=== PATIENT | female | born 1975 | race Caucasian/White ===

== ENCOUNTER 2021-03-26 09:06 | Inpatient (IN) ==
[2021-03-26 11:51] LABS: Hematocrit 31.1 % (35.3-44.9); Hemoglobin 10.2 g/dL (11.5-15.4); Mean Corpuscular HGB Conc 32.8 g/dL (31.6-35.5); Mean Corpuscular Volume 94.5 fL (83.0-100.0); Mean Platelet Volume 9.5 fL (9.4-12.4); Platelet Count 202 K/mcL (140-400); Red Blood Count 3.29 M/mcL (3.82-4.97); Red Cell Distribution Width 13.8 % (11.5-14.5); White Blood Count 3.9 K/mcL (4.3-11.1)
[2021-03-26 12:01] LABS: INR 1.3
[2021-03-26 12:04] LABS: Activated Partial Thrombo Time 30.4 Seconds (26.0-36.0)
[2021-03-26 12:20] LABS: Alanine Aminotransferase 24 Units/L (7-52); Albumin 3.3 g/dL (3.5-5.7); Albumin/Globulin Ratio 1.1 (1.1-2.2); Alkaline Phosphatase 51 Units/L (34-104); Aspartate Amino Transferase 36 Units/L (13-39); BUN/Creatinine Ratio 13 (6-26); Bilirubin,Direct 0.1 mg/dL (0.0-0.2); Bilirubin,Indirect 0.1 mg/dL (0.0-1.0); Bilirubin,Total 0.2 mg/dL (0.3-1.0); Blood Urea Nitrogen 6 mg/dL (6-20); C-Reactive Protein 68 mg/L (Less than 10); Calcium 8.2 mg/dL (8.6-10.3); Carbon Dioxide 25 mEq/L (23-29); Chloride 102 mEq/L (98-107); Glucose 216 mg/dL (70-105); Lactate Dehydrogenase 335 Units/L (140-271); Magnesium 1.7 mg/dL (1.6-2.6); Osmolality,Calculated 284 (280-300); Phosphorous 2.9 mg/dL (2.7-4.5); Potassium 3.8 mEq/L (3.5-5.1); Sodium 135 mEq/L (136-145); Total Protein 6.3 g/dL (6.4-8.9); Troponin I < 0.03 ng/mL (< 0.04); eGFR For African Americans > 60 (> 60); eGFR For Non-African Americans > 60 (> 60)
[2021-03-26 12:24] LABS: Lymphocytes # 0.9 K/mcL (0.6-4.6)
[2021-03-26 12:25] LABS: Platelet Estimate Normal (Normal)
[2021-03-26 12:27] LABS: Reactive Lymphocytes Present (Not Present)
[2021-03-26 12:29] LABS: Ferritin 476 ng/mL (10-120)
[2021-03-26 12:32] LABS: Monocytes # 0.2 K/mcL (0.0-1.3); Neutrophils # 2.7 K/mcL (1.6-8.9)
[2021-03-26] MEDS ORDERED: *HR* Dextrose 50 % in Water (Syg) 50 ML SYRINGE IVP PRN (13:30)
[2021-03-26] MEDS ORDERED: D5% in Water 1,000 ML IVC PRN (13:30)
[2021-03-26] MEDS ORDERED: Dextrose Gel 15 GM/37.5 ML TUBE PO PRN ×2 (13:30)
[2021-03-26] MEDS ORDERED: Ondansetron 4 MG/2 ML VIAL IVP PRN (13:43)
[2021-03-26] MEDS ORDERED: Naloxone 0.4 MG/ML INJ IVP PRN (13:43)
[2021-03-26] MEDS ORDERED: Remdesivir 200 MG in 0.9 % Sodium Chloride 100 ML IVPB ONE (15:00)
[2021-03-26] MEDS: Ipratropium 1 PUFF INHALER IH SCH ×3 (16:17→23:16)
[2021-03-26] MEDS: Insulin LISPRO 300 UNITS/3 ML VIAL SUBQ SCH ×2 (16:42→22:37)
[2021-03-26] MEDS: *HR* Enoxaparin 40 MG/0.4 ML SYRINGE SQ SCH (22:37)
[2021-03-27] MEDS: Ipratropium 1 PUFF INHALER IH SCH ×6 (04:03→23:25)
[2021-03-27 05:42] LABS: Alanine Aminotransferase 27 Units/L (7-52); Albumin 3.3 g/dL (3.5-5.7); Albumin/Globulin Ratio 1.1 (1.1-2.2); Alkaline Phosphatase 50 Units/L (34-104); Aspartate Amino Transferase 38 Units/L (13-39); BUN/Creatinine Ratio 14 (6-26); Bilirubin,Total 0.2 mg/dL (0.3-1.0); Blood Urea Nitrogen 7 mg/dL (6-20); Calcium 8.1 mg/dL (8.6-10.3); Carbon Dioxide 25 mEq/L (23-29); Chloride 102 mEq/L (98-107); Glucose 240 mg/dL (70-105); Osmolality,Calculated 286 (280-300); Potassium 3.7 mEq/L (3.5-5.1); Sodium 135 mEq/L (136-145); Total Protein 6.3 g/dL (6.4-8.9); eGFR For African Americans > 60 (> 60); eGFR For Non-African Americans > 60 (> 60)
[2021-03-27] MEDS: Acetaminophen 325 MG TABLET PO PRN (08:17)
[2021-03-27] MEDS: Insulin LISPRO 300 UNITS/3 ML VIAL SUBQ SCH ×4 (08:19→21:35)
[2021-03-27] MEDS: *HR* Enoxaparin 40 MG/0.4 ML SYRINGE SQ SCH ×2 (08:38→21:35)
[2021-03-27 10:04] LABS: Hematocrit 31.2 % (35.3-44.9); Hemoglobin 10.1 g/dL (11.5-15.4); Immature Granulocytes % 0.6 % (0-4); Lymphocytes # 0.9 K/mcL (0.6-4.6); Lymphocytes % 16.7 %; Mean Corpuscular HGB Conc 32.4 g/dL (31.6-35.5); Mean Corpuscular Hemoglobin 31.1 pg (28.0-33.3); Monocytes # 0.4 K/mcL (0.0-1.3); Monocytes % 7.6 %; Neutrophils # 3.9 K/mcL (1.6-8.9); Platelet Count 233 K/mcL (140-400); Red Blood Count 3.25 M/mcL (3.82-4.97); Red Cell Distribution Width 13.5 % (11.5-14.5); Segmented Neutrophils % 75.1 %; White Blood Count 5.1 K/mcL (4.3-11.1)
[2021-03-27 11:38] LABS: C-Reactive Protein 60 mg/L (Less than 10)
[2021-03-27 13:46] LABS: Adenovirus F 40/41 PCR Not detected (Not detect); Astrovirus PCR Not detected (Not detect); Campylobacter by PCR Not detected (Not detect); Cryptosporidium by PCR Not detected (Not detect); Cyclospora cayetanensis PCR Not detected (Not detect); E. coli O157 by PCR Not detected (Not detect); Entamoeba histolytica PCR Not detected (Not detect); Enteroaggregative E.coli(EAEC) Not detected (Not detect); Enteropathogenic E.coli(EPEC) DETECTED (Not detect); Enterotoxigenic E.coli (ETEC) Not detected (Not detect); Giardia lamblia PCR Not detected (Not detect); Norovirus GI/GII PCR Not detected (Not detect); Plesiomonas shigelloides PCR Not detected (Not detect); Rotavirus A PCR Not detected (Not detect); Salmonella PCR Not detected (Not detect); Sapovirus PCR Not detected (Not detect); Shig/EnteroinvasiveE coli EIEC Not detected (Not detect); Shigalike tox-prod E coli STEC Not detected (Not detect); Vibrio PCR Not detected (Not detect); Vibrio cholerae PCR Not detected (Not detect); Yersinia enterocolitica PCR Not detected (Not detect)
[2021-03-27 13:50] LABS: C.difficile Toxin A/B Gene PCR DETECTED (Not detect)
[2021-03-27] MEDS: Remdesivir 100 MG in 0.9 % Sodium Chloride 100 ML IVPB SCH (15:47)
[2021-03-27] MEDS: Vancomycin Oral Soln 125 MG/2.5 ML UDC PO SCH ×2 (18:06→21:35)
[2021-03-27] MEDS: Insulin DETEMIR 100 UNIT/ML X5UNITS SUBQ SCH (21:35)
[2021-03-28] MEDS ORDERED: *HR* LORazepam 2 MG/ML VIAL IVP ONE (03:01)
[2021-03-28] MEDS: Ipratropium 1 PUFF INHALER IH SCH ×4 (03:05→20:42)
[2021-03-28] MEDS: *HR* Enoxaparin 40 MG/0.4 ML SYRINGE SQ SCH ×2 (08:14→20:20)
[2021-03-28] MEDS: Furosemide 40 MG/4 ML VIAL IVP SCH (08:15)
[2021-03-28] MEDS: Cholecalciferol (D-3) 1,000 UNIT (25MCG) TABLET PO SCH (08:15)
[2021-03-28] MEDS: Loratadine 10 MG TABLET PO SCH (08:15)
[2021-03-28] MEDS: Vancomycin Oral Soln 125 MG/2.5 ML UDC PO SCH ×4 (08:16→21:50)
[2021-03-28] MEDS: Insulin LISPRO 300 UNITS/3 ML VIAL SUBQ SCH ×4 (08:27→20:21)
[2021-03-28] MEDS: Insulin DETEMIR 100 UNIT/ML X5UNITS SUBQ SCH ×2 (08:28→20:21)
[2021-03-28] MEDS ORDERED: hydroCHLOROthiazide 25 MG TABLET PO SCH (09:00)
[2021-03-28] MEDS: Morphine Sulfate 2 MG/ML SYRINGE IVP PRN ×3 (11:36→20:20)
[2021-03-28 12:15] LABS: Fibrinogen 501 mg/dL (169-393)
[2021-03-28 12:23] LABS: D-Dimer 778 ng/mLFEU (0-500); Lactate Dehydrogenase 583 Units/L (140-271)
[2021-03-28 12:41] LABS: Ferritin 589 ng/mL (10-120)
[2021-03-28] MEDS: Remdesivir 100 MG in 0.9 % Sodium Chloride 100 ML IVPB SCH (14:56)
[2021-03-28] MEDS ORDERED: Furosemide 40 MG/4 ML VIAL IVP ONE (15:23)
[2021-03-29 03:06] LABS: Basophils % 0.1 %; Hematocrit 31.4 % (35.3-44.9); Hemoglobin 10.3 g/dL (11.5-15.4); Immature Granulocytes % 0.9 % (0-4); Lymphocytes # 0.8 K/mcL (0.6-4.6); Lymphocytes % 7.5 %; Mean Corpuscular HGB Conc 32.8 g/dL (31.6-35.5); Mean Corpuscular Hemoglobin 30.8 pg (28.0-33.3); Mean Platelet Volume 9.3 fL (9.4-12.4); Monocytes # 0.7 K/mcL (0.0-1.3); Monocytes % 7.2 %; Neutrophils # 8.7 K/mcL (1.6-8.9); Platelet Count 310 K/mcL (140-400); Red Blood Count 3.34 M/mcL (3.82-4.97); Red Cell Distribution Width 13.5 % (11.5-14.5); Segmented Neutrophils % 84.3 %
[2021-03-29 03:08] LABS: White Blood Count 10.3 K/mcL (4.3-11.1)
[2021-03-29 03:37] LABS: BUN/Creatinine Ratio 26 (6-26); Blood Urea Nitrogen 14 mg/dL (6-20); Calcium 8.4 mg/dL (8.6-10.3); Carbon Dioxide 29 mEq/L (23-29); Chloride 102 mEq/L (98-107); Glucose 300 mg/dL (70-105); Osmolality,Calculated 298 (280-300); Phosphorous 2.6 mg/dL (2.7-4.5); Potassium 3.6 mEq/L (3.5-5.1); Sodium 138 mEq/L (136-145); eGFR For African Americans > 60 (> 60); eGFR For Non-African Americans > 60 (> 60)
[2021-03-29] MEDS: Ipratropium 1 PUFF INHALER IH SCH ×4 (03:45→20:08)
[2021-03-29] MEDS: *HR* Enoxaparin 40 MG/0.4 ML SYRINGE SQ SCH ×2 (08:23→20:05)
[2021-03-29] MEDS: amLODIPine 5 MG TABLET PO SCH (08:24)
[2021-03-29] MEDS: Insulin DETEMIR 100 UNIT/ML X5UNITS SUBQ SCH ×2 (08:24→20:05)
[2021-03-29] MEDS: Loratadine 10 MG TABLET PO SCH (08:24)
[2021-03-29] MEDS: Cholecalciferol (D-3) 1,000 UNIT (25MCG) TABLET PO SCH (08:24)
[2021-03-29] MEDS: Vancomycin Oral Soln 125 MG/2.5 ML UDC PO SCH ×4 (08:25→20:05)
[2021-03-29] MEDS: Insulin LISPRO 300 UNITS/3 ML VIAL SUBQ SCH ×4 (08:25→20:06)
[2021-03-29] MEDS: Furosemide 40 MG/4 ML VIAL IVP SCH (08:26)
[2021-03-29] MEDS: Acetaminophen 325 MG TABLET PO PRN (08:42)
[2021-03-29] MEDS: Morphine Sulfate 2 MG/ML SYRINGE IVP PRN (08:50)
[2021-03-29] MEDS ORDERED: Furosemide 40 MG/4 ML VIAL IVP ONE (15:00)
[2021-03-29] MEDS: Remdesivir 100 MG in 0.9 % Sodium Chloride 100 ML IVPB SCH (16:03)
[2021-03-29] MEDS ORDERED: Saline Nasal Spray 44 ML BOTTLE NS PRN (19:22)
[2021-03-30] MEDS: Ipratropium 1 PUFF INHALER IH SCH ×4 (03:43→22:57)
[2021-03-30] MEDS: Insulin LISPRO 300 UNITS/3 ML VIAL SUBQ SCH ×3 (08:41→16:41)
[2021-03-30] MEDS: *HR* Enoxaparin 40 MG/0.4 ML SYRINGE SQ SCH ×2 (08:42→20:49)
[2021-03-30] MEDS: Cholecalciferol (D-3) 1,000 UNIT (25MCG) TABLET PO SCH (08:42)
[2021-03-30] MEDS: Loratadine 10 MG TABLET PO SCH (08:42)
[2021-03-30] MEDS: amLODIPine 5 MG TABLET PO SCH (08:42)
[2021-03-30] MEDS: Furosemide 40 MG/4 ML VIAL IVP SCH (08:43)
[2021-03-30] MEDS: Vancomycin Oral Soln 125 MG/2.5 ML UDC PO SCH ×4 (08:43→20:49)
[2021-03-30] MEDS: Insulin DETEMIR 100 UNIT/ML X5UNITS SUBQ SCH ×2 (08:44→20:50)
[2021-03-30 08:48] LABS: Basophils % 0.1 %; Hemoglobin 10.8 g/dL (11.5-15.4); Immature Granulocytes % 1.3 % (0-4); Lymphocytes # 1.3 K/mcL (0.6-4.6); Lymphocytes % 8.6 %; Mean Corpuscular HGB Conc 32.7 g/dL (31.6-35.5); Mean Corpuscular Volume 94.8 fL (83.0-100.0); Mean Platelet Volume 9.5 fL (9.4-12.4); Monocytes # 0.9 K/mcL (0.0-1.3); Monocytes % 5.8 %; Neutrophils # 12.5 K/mcL (1.6-8.9); Platelet Count 401 K/mcL (140-400); Red Blood Count 3.48 M/mcL (3.82-4.97); Red Cell Distribution Width 13.3 % (11.5-14.5); Segmented Neutrophils % 84.2 %; White Blood Count 14.8 K/mcL (4.3-11.1)
[2021-03-30] MEDS: Morphine Sulfate 2 MG/ML SYRINGE IVP PRN (08:50)
[2021-03-30 09:03] LABS: BUN/Creatinine Ratio 33 (6-26); Blood Urea Nitrogen 19 mg/dL (6-20); Calcium 8.8 mg/dL (8.6-10.3); Carbon Dioxide 32 mEq/L (23-29); Chloride 99 mEq/L (98-107); Glucose 239 mg/dL (70-105); Osmolality,Calculated 298 (280-300); Potassium 3.1 mEq/L (3.5-5.1); Sodium 139 mEq/L (136-145); eGFR For African Americans > 60 (> 60); eGFR For Non-African Americans > 60 (> 60)
[2021-03-30] MEDS: Remdesivir 100 MG in 0.9 % Sodium Chloride 100 ML IVPB SCH (16:43)
[2021-03-30 17:15] LABS: Albumin 3.5 g/dL (3.5-5.7); Bilirubin,Indirect 0.4 mg/dL (0.0-1.0); Bilirubin,Total 0.4 mg/dL (0.3-1.0); Globulin 3.5 g/dL (2.4-3.5)
[2021-03-31 01:43] LABS: Basophils % 0.2 %; Hematocrit 33.9 % (35.3-44.9); Hemoglobin 11.2 g/dL (11.5-15.4); Immature Granulocytes % 1.7 % (0-4); Lymphocytes % 7.4 %; Mean Corpuscular Hemoglobin 31.1 pg (28.0-33.3); Mean Corpuscular Volume 94.2 fL (83.0-100.0); Mean Platelet Volume 9.6 fL (9.4-12.4); Monocytes # 0.9 K/mcL (0.0-1.3); Monocytes % 6.2 %; Neutrophils # 11.8 K/mcL (1.6-8.9); Platelet Count 408 K/mcL (140-400); Red Cell Distribution Width 13.2 % (11.5-14.5); Segmented Neutrophils % 84.5 %
[2021-03-31 02:07] LABS: BUN/Creatinine Ratio 30 (6-26); Blood Urea Nitrogen 18 mg/dL (6-20); Calcium 8.9 mg/dL (8.6-10.3); Carbon Dioxide 31 mEq/L (23-29); Chloride 100 mEq/L (98-107); Glucose 233 mg/dL (70-105); Magnesium 2.1 mg/dL (1.6-2.6); Osmolality,Calculated 297 (280-300); Sodium 139 mEq/L (136-145); eGFR For African Americans > 60 (> 60); eGFR For Non-African Americans > 60 (> 60)
[2021-03-31] MEDS: Ipratropium 1 PUFF INHALER IH SCH ×4 (03:39→20:40)
[2021-03-31] MEDS: Morphine Sulfate 2 MG/ML SYRINGE IVP PRN (05:35)
[2021-03-31] MEDS: Insulin LISPRO 300 UNITS/3 ML VIAL SUBQ SCH ×3 (08:29→16:53)
[2021-03-31] MEDS: amLODIPine 5 MG TABLET PO SCH (08:30)
[2021-03-31] MEDS: Vancomycin Oral Soln 125 MG/2.5 ML UDC PO SCH ×4 (08:30→20:27)
[2021-03-31] MEDS: Cholecalciferol (D-3) 1,000 UNIT (25MCG) TABLET PO SCH (08:30)
[2021-03-31] MEDS: Loratadine 10 MG TABLET PO SCH (08:30)
[2021-03-31] MEDS: *HR* Enoxaparin 40 MG/0.4 ML SYRINGE SQ SCH ×2 (08:31→20:27)
[2021-03-31] MEDS: Furosemide 40 MG/4 ML VIAL IVP SCH (08:31)
[2021-03-31] MEDS: Insulin DETEMIR 100 UNIT/ML X5UNITS SUBQ SCH ×2 (08:32→20:27)
[2021-03-31] MEDS: GuaiFENesin Liq 200 MG/10 ML UDC PO PRN (21:41)
[2021-04-01] MEDS ORDERED: Benzonatate 100 MG CAPSULE PO PRN (01:36)
[2021-04-01] MEDS: Morphine Sulfate 2 MG/ML SYRINGE IVP PRN (01:46)
[2021-04-01] MEDS: Ipratropium 1 PUFF INHALER IH SCH ×4 (03:51→21:37)
[2021-04-01 05:09] LABS: Basophils % 0.3 %; Eosinophils # 0.1 K/mcL (0.0-0.6); Eosinophils % 0.5 %; Hematocrit 32.9 % (35.3-44.9); Hemoglobin 10.7 g/dL (11.5-15.4); Immature Granulocytes % 2.1 % (0-4); Lymphocytes # 1.3 K/mcL (0.6-4.6); Lymphocytes % 9.2 %; Mean Corpuscular HGB Conc 32.5 g/dL (31.6-35.5); Mean Corpuscular Hemoglobin 30.4 pg (28.0-33.3); Mean Corpuscular Volume 93.5 fL (83.0-100.0); Mean Platelet Volume 9.5 fL (9.4-12.4); Monocytes # 0.7 K/mcL (0.0-1.3); Monocytes % 4.7 %; Neutrophils # 12.1 K/mcL (1.6-8.9); Platelet Count 392 K/mcL (140-400); Red Blood Count 3.52 M/mcL (3.82-4.97); Red Cell Distribution Width 13.1 % (11.5-14.5); Segmented Neutrophils % 83.2 %; White Blood Count 14.6 K/mcL (4.3-11.1)
[2021-04-01 05:23] LABS: BUN/Creatinine Ratio 35 (6-26); Blood Urea Nitrogen 19 mg/dL (6-20); Calcium 8.8 mg/dL (8.6-10.3); Carbon Dioxide 29 mEq/L (23-29); Chloride 99 mEq/L (98-107); Glucose 184 mg/dL (70-105); Magnesium 2.1 mg/dL (1.6-2.6); Osmolality,Calculated 291 (280-300); Potassium 3.5 mEq/L (3.5-5.1); Sodium 137 mEq/L (136-145); eGFR For African Americans > 60 (> 60); eGFR For Non-African Americans > 60 (> 60)
[2021-04-01] MEDS: GuaiFENesin Liq 200 MG/10 ML UDC PO PRN (05:31)
[2021-04-01] MEDS: Insulin LISPRO 300 UNITS/3 ML VIAL SUBQ SCH ×3 (08:14→16:24)
[2021-04-01] MEDS: Furosemide 40 MG/4 ML VIAL IVP SCH (08:17)
[2021-04-01] MEDS: amLODIPine 5 MG TABLET PO SCH (08:19)
[2021-04-01] MEDS: Loratadine 10 MG TABLET PO SCH (08:19)
[2021-04-01] MEDS: Cholecalciferol (D-3) 1,000 UNIT (25MCG) TABLET PO SCH (08:19)
[2021-04-01] MEDS: *HR* Enoxaparin 40 MG/0.4 ML SYRINGE SQ SCH ×2 (08:21→21:00)
[2021-04-01] MEDS: Vancomycin Oral Soln 125 MG/2.5 ML UDC PO SCH ×2 (08:36→12:16)
[2021-04-01] MEDS: Insulin DETEMIR 100 UNIT/ML X5UNITS SUBQ SCH ×2 (08:37→21:01)
[2021-04-01 09:04] LABS: C-Reactive Protein 114 mg/L (Less than 10)
[2021-04-01] MEDS: Multivit/Ca/Min/Fe/FA 1 TAB TABLET PO SCH (12:17)
[2021-04-01] MEDS: Saliva Stimulant 44.3ml BOTTLE PO SCH ×6 (12:17→23:04)
[2021-04-01] MEDS: Artificial Tears SOLN 15 ML BOTTLE BOTH EYES SCH ×4 (12:17→21:01)
[2021-04-01] MEDS: Saline Nasal Spray 44 ML BOTTLE NS SCH ×4 (12:18→21:01)
[2021-04-01] MEDS: Chlorhexidine Rinse 15 ML MOUTHWASH MM SCH ×2 (12:19→21:00)
[2021-04-01 15:49] LABS: ABG Base Excess 3 mEq/L (-2 to 3); ABG HCO3 27 mEq/L (21-27); ABG Oxygen Saturation 94 % (95-98); ABG PCO2 38 mmHg (35-45); ABG PH 7.45 pH Units (7.32-7.45); ABG PO2 66 mmHg (85-104); ABG TCO2 28 mEq/L (20-26)
[2021-04-01] MEDS: Lactobacillus 1 EACH CAP.SPRINK PO SCH (21:00)
[2021-04-02] MEDS: Saliva Stimulant 44.3ml BOTTLE PO SCH ×12 (01:31→23:59)
[2021-04-02] MEDS: Saline Nasal Spray 44 ML BOTTLE NS SCH ×6 (01:31→23:59)
[2021-04-02] MEDS: Ipratropium 1 PUFF INHALER IH SCH ×5 (03:11→20:15)
[2021-04-02 04:05] LABS: Basophils % 0.2 %; Eosinophils # 0.1 K/mcL (0.0-0.6); Eosinophils % 0.6 %; Hematocrit 33.1 % (35.3-44.9); Lymphocytes % 5.9 %; Mean Corpuscular HGB Conc 33.2 g/dL (31.6-35.5); Mean Corpuscular Volume 93.2 fL (83.0-100.0); Mean Platelet Volume 9.7 fL (9.4-12.4); Monocytes # 0.7 K/mcL (0.0-1.3); Monocytes % 3.7 %; Neutrophils # 15.5 K/mcL (1.6-8.9); Platelet Count 373 K/mcL (140-400); Red Blood Count 3.55 M/mcL (3.82-4.97); Red Cell Distribution Width 12.9 % (11.5-14.5); Segmented Neutrophils % 87.6 %; White Blood Count 17.7 K/mcL (4.3-11.1)
[2021-04-02 04:30] LABS: Alanine Aminotransferase 21 Units/L (7-52); Albumin 3.2 g/dL (3.5-5.7); Albumin/Globulin Ratio 0.9 (1.1-2.2); Alkaline Phosphatase 77 Units/L (34-104); Aspartate Amino Transferase 20 Units/L (13-39); BUN/Creatinine Ratio 33 (6-26); Bilirubin,Total 0.5 mg/dL (0.3-1.0); Blood Urea Nitrogen 17 mg/dL (6-20); C-Reactive Protein 171 mg/L (Less than 10); Calcium 8.9 mg/dL (8.6-10.3); Carbon Dioxide 31 mEq/L (23-29); Chloride 96 mEq/L (98-107); Globulin 3.7 g/dL (2.4-3.5); Glucose 281 mg/dL (70-105); Lactate Dehydrogenase 556 Units/L (140-271); Magnesium 2.1 mg/dL (1.6-2.6); Osmolality,Calculated 294 (280-300); Phosphorous 3.3 mg/dL (2.7-4.5); Potassium 3.3 mEq/L (3.5-5.1); Sodium 136 mEq/L (136-145); Total Protein 6.9 g/dL (6.4-8.9); eGFR For African Americans > 60 (> 60); eGFR For Non-African Americans > 60 (> 60)
[2021-04-02 04:41] LABS: Ferritin 436 ng/mL (10-120)
[2021-04-02] MEDS: Chlorhexidine Rinse 15 ML MOUTHWASH MM SCH ×2 (08:04→21:00)
[2021-04-02] MEDS: amLODIPine 5 MG TABLET PO SCH (08:05)
[2021-04-02] MEDS: Lactobacillus 1 EACH CAP.SPRINK PO SCH ×2 (08:05→21:00)
[2021-04-02] MEDS: Cholecalciferol (D-3) 1,000 UNIT (25MCG) TABLET PO SCH (08:06)
[2021-04-02] MEDS: Loratadine 10 MG TABLET PO SCH (08:06)
[2021-04-02] MEDS: Furosemide 40 MG/4 ML VIAL IVP SCH (08:06)
[2021-04-02] MEDS: Multivit/Ca/Min/Fe/FA 1 TAB TABLET PO SCH (08:06)
[2021-04-02] MEDS: Insulin LISPRO 300 UNITS/3 ML VIAL SUBQ SCH ×3 (08:16→16:51)
[2021-04-02] MEDS: *HR* Enoxaparin 40 MG/0.4 ML SYRINGE SQ SCH (08:24)
[2021-04-02] MEDS: Artificial Tears SOLN 15 ML BOTTLE BOTH EYES SCH ×4 (08:28→21:00)
[2021-04-02 08:39] LABS: Estimated Average Glucose 206 mg/dl; Hemoglobin A1C 8.8 %
[2021-04-02] MEDS: Insulin DETEMIR 100 UNIT/ML X5UNITS SUBQ SCH ×2 (09:19→21:25)
[2021-04-02] MEDS ORDERED: Isovue-370 500 ML BOTTLE IVP ONE (12:25)
[2021-04-02] MEDS ORDERED: *HR* Heparin 5,000 UNIT/ML VIAL IVP PRN (14:18)
[2021-04-02] MEDS ORDERED: *HR* Heparin 5,000 UNIT/ML VIAL IVP ONE (14:18)
[2021-04-02] MEDS: Heparin 25,000UNIT/250ML 1/2NS 25,000 UNIT/250 ML IV.SOLN IVC SCH (16:46)
[2021-04-02 17:05] LABS: Hematocrit 34.7 % (35.3-44.9); Hemoglobin 11.4 g/dL (11.5-15.4); Mean Corpuscular HGB Conc 32.9 g/dL (31.6-35.5); Mean Corpuscular Hemoglobin 30.8 pg (28.0-33.3); Mean Corpuscular Volume 93.8 fL (83.0-100.0); Mean Platelet Volume 9.6 fL (9.4-12.4); Platelet Count 313 K/mcL (140-400); Red Cell Distribution Width 13.2 % (11.5-14.5); White Blood Count 24.2 K/mcL (4.3-11.1)
[2021-04-02 17:16] LABS: Heparin anti-factor XA UFH 0.04 IU/mL (0.30-0.70)
[2021-04-02 17:17] LABS: INR 1.4; Prothrombin Time 15.7 Seconds (9.4-12.1)
[2021-04-03] MEDS: Morphine Sulfate 2 MG/ML SYRINGE IVP PRN (00:21)
[2021-04-03] MEDS: Saliva Stimulant 44.3ml BOTTLE PO SCH ×9 (02:18→20:00)
[2021-04-03] MEDS: Ipratropium 1 PUFF INHALER IH SCH ×5 (03:39→23:34)
[2021-04-03] MEDS: Saline Nasal Spray 44 ML BOTTLE NS SCH ×5 (04:45→19:59)
[2021-04-03] MEDS: Heparin 25,000UNIT/250ML 1/2NS 25,000 UNIT/250 ML IV.SOLN IVC SCH ×2 (05:48→18:20)
[2021-04-03 06:51] LABS: Basophils # 0.1 K/mcL (0.0-0.2); Basophils % 0.3 %; Eosinophils # 0.7 K/mcL (0.0-0.6); Eosinophils % 3.1 %; Hemoglobin 10.5 g/dL (11.5-15.4); Immature Granulocytes % 3.5 % (0-4); Lymphocytes # 1.4 K/mcL (0.6-4.6); Mean Corpuscular HGB Conc 32.8 g/dL (31.6-35.5); Mean Corpuscular Hemoglobin 30.8 pg (28.0-33.3); Mean Corpuscular Volume 93.8 fL (83.0-100.0); Mean Platelet Volume 9.7 fL (9.4-12.4); Monocytes # 0.5 K/mcL (0.0-1.3); Monocytes % 2.4 %; Neutrophils # 19.3 K/mcL (1.6-8.9); Platelet Count 300 K/mcL (140-400); Red Blood Count 3.41 M/mcL (3.82-4.97); Red Cell Distribution Width 13.2 % (11.5-14.5); Segmented Neutrophils % 84.7 %; White Blood Count 22.7 K/mcL (4.3-11.1)
[2021-04-03 07:04] LABS: Alanine Aminotransferase 17 Units/L (7-52); Albumin/Globulin Ratio 0.8 (1.1-2.2); Alkaline Phosphatase 96 Units/L (34-104); Aspartate Amino Transferase 27 Units/L (13-39); BUN/Creatinine Ratio 25 (6-26); Bilirubin,Total 0.6 mg/dL (0.3-1.0); Blood Urea Nitrogen 15 mg/dL (6-20); Calcium 8.7 mg/dL (8.6-10.3); Carbon Dioxide 29 mEq/L (23-29); Chloride 97 mEq/L (98-107); Globulin 3.6 g/dL (2.4-3.5); Glucose 275 mg/dL (70-105); Lactate Dehydrogenase 666 Units/L (140-271); Osmolality,Calculated 291 (280-300); Potassium 3.7 mEq/L (3.5-5.1); Sodium 135 mEq/L (136-145); Total Protein 6.6 g/dL (6.4-8.9); eGFR For African Americans > 60 (> 60); eGFR For Non-African Americans > 60 (> 60)
[2021-04-03 07:19] LABS: Ferritin 418 ng/mL (10-120)
[2021-04-03] MEDS ORDERED: Pantoprazole 40 MG VIAL IVP SCH (09:00)
[2021-04-03 09:09] LABS: C-Reactive Protein 271 mg/L (Less than 10)
[2021-04-03] MEDS: Cholecalciferol (D-3) 1,000 UNIT (25MCG) TABLET PO SCH (09:10)
[2021-04-03] MEDS: Chlorhexidine Rinse 15 ML MOUTHWASH MM SCH ×2 (09:10→19:43)
[2021-04-03] MEDS: Multivit/Ca/Min/Fe/FA 1 TAB TABLET PO SCH (09:10)
[2021-04-03] MEDS: Loratadine 10 MG TABLET PO SCH (09:10)
[2021-04-03] MEDS: Lactobacillus 1 EACH CAP.SPRINK PO SCH ×2 (09:10→19:43)
[2021-04-03] MEDS: amLODIPine 5 MG TABLET PO SCH (09:10)
[2021-04-03] MEDS: Dexamethasone Sodium Phos/PF 10 MG/ML VIAL IVP SCH (09:13)
[2021-04-03] MEDS: Insulin DETEMIR 100 UNIT/ML X5UNITS SUBQ SCH ×2 (09:18→20:19)
[2021-04-03] MEDS: Insulin LISPRO 300 UNITS/3 ML VIAL SUBQ SCH ×3 (09:19→16:50)
[2021-04-03] MEDS ORDERED: Perflutren Lipid Microsphere 1.3 ML in 0.9 % Sodium Chloride 8.7 ML IVP PRN (09:23)
[2021-04-03] MEDS: Artificial Tears SOLN 15 ML BOTTLE BOTH EYES SCH ×4 (09:30→19:47)
[2021-04-03] MEDS: Furosemide 20 MG/2 ML VIAL IVP SCH (16:01)
[2021-04-03] MEDS: Acetaminophen 325 MG TABLET PO PRN (16:49)
[2021-04-03] MEDS ORDERED: Insulin Human Regular 10 UNIT in 0.9 % Sodium Chloride 10 ML IV ONE (16:54)
[2021-04-04] MEDS: Morphine Sulfate 2 MG/ML SYRINGE IVP PRN (01:44)
[2021-04-04] MEDS: Saliva Stimulant 44.3ml BOTTLE PO SCH ×9 (02:47→22:15)
[2021-04-04] MEDS: Ipratropium 1 PUFF INHALER IH SCH ×6 (05:00→22:51)
[2021-04-04] MEDS: Insulin LISPRO 300 UNITS/3 ML VIAL SUBQ SCH ×7 (07:40→17:01)
[2021-04-04] MEDS: Budesonide/Formoterol 160/4.5 1 PUFF INH IH SCH ×2 (07:47→19:31)
[2021-04-04] MEDS: Furosemide 20 MG/2 ML VIAL IVP SCH (07:51)
[2021-04-04] MEDS: Dexamethasone Sodium Phos/PF 10 MG/ML VIAL IVP SCH (07:51)
[2021-04-04] MEDS: Saline Nasal Spray 44 ML BOTTLE NS SCH ×4 (07:52→20:37)
[2021-04-04] MEDS: Insulin DETEMIR 100 UNIT/ML X5UNITS SUBQ SCH ×2 (07:52→20:46)
[2021-04-04] MEDS: Artificial Tears SOLN 15 ML BOTTLE BOTH EYES SCH ×4 (07:53→20:47)
[2021-04-04] MEDS: Multivit/Ca/Min/Fe/FA 1 TAB TABLET PO SCH (07:53)
[2021-04-04] MEDS: Lactobacillus 1 EACH CAP.SPRINK PO SCH ×2 (07:53→20:46)
[2021-04-04] MEDS: NIFEdipine XL (24 HR) 60 MG TAB.ER.24 PO SCH (07:53)
[2021-04-04] MEDS: Chlorhexidine Rinse 15 ML MOUTHWASH MM SCH ×2 (07:53→20:47)
[2021-04-04] MEDS: Loratadine 10 MG TABLET PO SCH (07:53)
[2021-04-04] MEDS: Cholecalciferol (D-3) 1,000 UNIT (25MCG) TABLET PO SCH (07:53)
[2021-04-04] MEDS: Heparin 25,000UNIT/250ML 1/2NS 25,000 UNIT/250 ML IV.SOLN IVC SCH ×2 (08:26→20:47)
[2021-04-04 08:33] LABS: Monocytes % 2.5 %; Red Cell Distribution Width 13.2 % (11.5-14.5)
[2021-04-04 08:35] LABS: Basophils # 0.1 K/mcL (0.0-0.2); Basophils % 0.3 %; Eosinophils # 0.8 K/mcL (0.0-0.6); Eosinophils % 3.1 %; Hemoglobin 10.6 g/dL (11.5-15.4); Immature Granulocytes % 4.4 % (0-4); Lymphocytes # 1.5 K/mcL (0.6-4.6); Lymphocytes % 5.9 %; Mean Corpuscular HGB Conc 32.1 g/dL (31.6-35.5); Mean Corpuscular Hemoglobin 30.3 pg (28.0-33.3); Mean Corpuscular Volume 94.3 fL (83.0-100.0); Monocytes # 0.6 K/mcL (0.0-1.3); Neutrophils # 20.6 K/mcL (1.6-8.9); Platelet Count 331 K/mcL (140-400); Segmented Neutrophils % 83.8 %; White Blood Count 24.6 K/mcL (4.3-11.1)
[2021-04-04 08:55] LABS: Alanine Aminotransferase 18 Units/L (7-52); Albumin/Globulin Ratio 0.8 (1.1-2.2); Alkaline Phosphatase 109 Units/L (34-104); Aspartate Amino Transferase 27 Units/L (13-39); BUN/Creatinine Ratio 23 (6-26); Bilirubin,Total 0.5 mg/dL (0.3-1.0); Blood Urea Nitrogen 15 mg/dL (6-20); Calcium 8.9 mg/dL (8.6-10.3); Carbon Dioxide 30 mEq/L (23-29); Chloride 97 mEq/L (98-107); Globulin 3.8 g/dL (2.4-3.5); Glucose 207 mg/dL (70-105); Lactate Dehydrogenase 663 Units/L (140-271); Osmolality,Calculated 291 (280-300); Phosphorous 2.5 mg/dL (2.7-4.5); Potassium 3.5 mEq/L (3.5-5.1); Sodium 137 mEq/L (136-145); Total Protein 6.8 g/dL (6.4-8.9); eGFR For African Americans > 60 (> 60); eGFR For Non-African Americans > 60 (> 60)
[2021-04-04 09:14] LABS: C-Reactive Protein > 300 mg/L (Less than 10); Ferritin 471 ng/mL (10-120)
[2021-04-04] MEDS: *HR* OxyCODONE/APAP 5/325 TABLET PO PRN ×2 (12:21→20:37)
[2021-04-04] MEDS: Benzonatate 100 MG CAPSULE PO SCH ×2 (13:45→20:46)
[2021-04-04] MEDS ORDERED: Potassium Phosphate 44 MEQ in 0.9 % Sodium Chloride 250 ML IVPB ONE (14:04)
[2021-04-04] MEDS: Melatonin 3 MG TABLET PO SCH (20:46)
[2021-04-05] MEDS: Saliva Stimulant 44.3ml BOTTLE PO SCH ×10 (00:15→22:11)
[2021-04-05] MEDS: Ipratropium 1 PUFF INHALER IH SCH ×6 (03:40→23:26)
[2021-04-05 06:52] LABS: Hemoglobin 9.8 g/dL (11.5-15.4); Mean Corpuscular HGB Conc 32.7 g/dL (31.6-35.5); Mean Corpuscular Hemoglobin 30.6 pg (28.0-33.3); Mean Corpuscular Volume 93.8 fL (83.0-100.0); Mean Platelet Volume 10.1 fL (9.4-12.4); Nucleated Red Blood Cells 0.1 /100 WBC (0); Platelet Count 309 K/mcL (140-400); Red Cell Distribution Width 13.2 % (11.5-14.5); White Blood Count 22.8 K/mcL (4.3-11.1)
[2021-04-05] MEDS: Budesonide/Formoterol 160/4.5 1 PUFF INH IH SCH ×2 (07:25→20:24)
[2021-04-05 07:29] LABS: Alanine Aminotransferase 17 Units/L (7-52); Albumin 2.9 g/dL (3.5-5.7); Albumin/Globulin Ratio 0.8 (1.1-2.2); Alkaline Phosphatase 101 Units/L (34-104); Aspartate Amino Transferase 21 Units/L (13-39); BUN/Creatinine Ratio 27 (6-26); Bilirubin,Total 0.4 mg/dL (0.3-1.0); Blood Urea Nitrogen 14 mg/dL (6-20); Calcium 8.9 mg/dL (8.6-10.3); Carbon Dioxide 33 mEq/L (23-29); Chloride 97 mEq/L (98-107); Globulin 3.5 g/dL (2.4-3.5); Glucose 181 mg/dL (70-105); Lactate Dehydrogenase 587 Units/L (140-271); Magnesium 2.1 mg/dL (1.6-2.6); Osmolality,Calculated 287 (280-300); Phosphorous 3.5 mg/dL (2.7-4.5); Potassium 3.6 mEq/L (3.5-5.1); Sodium 136 mEq/L (136-145); Total Protein 6.4 g/dL (6.4-8.9); eGFR For African Americans > 60 (> 60); eGFR For Non-African Americans > 60 (> 60)
[2021-04-05] MEDS: Furosemide 20 MG/2 ML VIAL IVP SCH (07:44)
[2021-04-05] MEDS: Dexamethasone Sodium Phos/PF 10 MG/ML VIAL IVP SCH (07:44)
[2021-04-05] MEDS: Benzonatate 100 MG CAPSULE PO SCH ×3 (07:45→20:11)
[2021-04-05] MEDS: Multivit/Ca/Min/Fe/FA 1 TAB TABLET PO SCH (07:45)
[2021-04-05] MEDS: Cholecalciferol (D-3) 1,000 UNIT (25MCG) TABLET PO SCH (07:45)
[2021-04-05] MEDS: Acetaminophen 325 MG TABLET PO PRN (07:45)
[2021-04-05] MEDS: NIFEdipine XL (24 HR) 60 MG TAB.ER.24 PO SCH (07:45)
[2021-04-05] MEDS: Lactobacillus 1 EACH CAP.SPRINK PO SCH ×2 (07:45→20:11)
[2021-04-05] MEDS: Loratadine 10 MG TABLET PO SCH (07:45)
[2021-04-05 07:46] LABS: Ferritin 384 ng/mL (10-120)
[2021-04-05] MEDS: Insulin LISPRO 300 UNITS/3 ML VIAL SUBQ SCH ×6 (07:46→19:17)
[2021-04-05] MEDS: Chlorhexidine Rinse 15 ML MOUTHWASH MM SCH ×2 (07:46→20:11)
[2021-04-05] MEDS: Insulin DETEMIR 100 UNIT/ML X5UNITS SUBQ SCH ×2 (07:46→20:11)
[2021-04-05] MEDS: Heparin 25,000UNIT/250ML 1/2NS 25,000 UNIT/250 ML IV.SOLN IVC SCH ×2 (07:47→21:48)
[2021-04-05] MEDS: Artificial Tears SOLN 15 ML BOTTLE BOTH EYES SCH ×4 (07:47→20:11)
[2021-04-05] MEDS: Saline Nasal Spray 44 ML BOTTLE NS SCH ×4 (07:48→20:12)
[2021-04-05 07:53] LABS: Lymphocytes # 2.7 K/mcL (0.6-4.6); Monocytes # 0.9 K/mcL (0.0-1.3); Neutrophils # 19.2 K/mcL (1.6-8.9); Platelet Estimate Normal (Normal)
[2021-04-05 09:31] LABS: C-Reactive Protein 269 mg/L (Less than 10)
[2021-04-05] MEDS: *HR* Heparin 5,000 UNIT/ML VIAL IVP PRN (14:50)
[2021-04-05] MEDS ORDERED: *HR* LORazepam 0.5 MG TABLET PO ONE (16:56)
[2021-04-05] MEDS ORDERED: cefTRIAXone 1,000 MG in 0.9 % Sodium Chloride Mini Bag 100 ML IVPB SCH (17:00)
[2021-04-05] MEDS: cefTRIAXone 2,000 MG in Water for inj. (sterile) 20 ML IVP SCH (17:33)
[2021-04-05] MEDS: Azithromycin 250 MG TABLET PO SCH (17:33)
[2021-04-05] MEDS: Metoprolol XL (24 HR) Succ 25 MG TAB.ER.24H PO SCH (17:33)
[2021-04-05] MEDS: *HR* OxyCODONE/APAP 5/325 TABLET PO PRN (17:44)
[2021-04-05 18:41] LABS: Adenovirus Not Detected (Not Detect); Coronavirus 229E Not Detected (Not Detect); Coronavirus HKU1 Not Detected (Not Detect); Coronavirus NL63 Not Detected (Not Detect); Coronavirus OC43 Not Detected (Not Detect)
[2021-04-05 18:42] LABS: Bordetella Pertussis Not Detected (Not Detect); Chlamydophila pneumoniae Not Detected (Not Detect); Human Metapneumovirus Not Detected (Not Detect); Human Rhinovirus/Enterovirus Not Detected (Not Detect); Influenza A Subtype 2009 H1 Not Detected (Not Detect); Influenza B Not Detected (Not Detect); Mycoplasma pneumoniae Not Detected (Not Detect); Parainfluenza Virus 1 Not Detected (Not Detect); Parainfluenza Virus 2 Not Detected (Not Detect); Parainfluenza Virus 3 Not Detected (Not Detect); Parainfluenza Virus 4 Not Detected (Not Detect); Respiratory Syncytial Virus Not Detected (Not Detect); SARS-CoV-2 DETECTED (Not Detect)
[2021-04-05] MEDS: Melatonin 3 MG TABLET PO SCH (20:11)
[2021-04-05 20:45] LABS: VBG HCO3 28 mEq/L (21-27); VBG PCO2 45 mmHg (41-51); VBG PO2 118 mmHg (25-50)
[2021-04-05 22:47] LABS: Bacteria,Urine Few per hpf (None-Few); Bilirubin,Urine Negative (Negative); Blood,Urine Trace (Negative); Clarity,Urine Turbid (Clear); Color,Urine Yellow (Yellow); Glucose,Urine (UA) >=1000 mg/dL (Normal); Ketones,Urine Negative (Negative); Leukocyte Esterase,Urine Large (Negative); Mucus,Urine Few per lpf (None-Few); Nitrite,Urine Positive (Negative); Protein,Urine 50 mg/dL (Neg-Trace); RBC,Urine 0-3 per hpf (0-3); Specific Gravity,Urine 1.029 (1.010-1.025); Squamous Epithelial Cell,Urine Few per hpf (None-Few); Urobilinogen,Urine Normal (Normal); WBC,Urine 30-50 per hpf (0-3)
[2021-04-06] MEDS: Saliva Stimulant 44.3ml BOTTLE PO SCH ×12 (00:36→21:46)
[2021-04-06] MEDS: *HR* OxyCODONE/APAP 5/325 TABLET PO PRN ×3 (01:00→20:21)
[2021-04-06] MEDS: Ipratropium 1 PUFF INHALER IH SCH ×6 (03:51→23:53)
[2021-04-06 04:51] LABS: Hematocrit 27.5 % (35.3-44.9); Mean Corpuscular HGB Conc 32.7 g/dL (31.6-35.5); Mean Corpuscular Volume 94.8 fL (83.0-100.0); Mean Platelet Volume 10.6 fL (9.4-12.4); Nucleated Red Blood Cells 0.1 /100 WBC (0); Platelet Count 284 K/mcL (140-400); Red Cell Distribution Width 13.1 % (11.5-14.5)
[2021-04-06 05:07] LABS: % Iron Saturation 32 % (15-50); Iron 63 mcg/dL (50-170); Transferrin 141 mg/dL (203-362)
[2021-04-06 05:08] LABS: D-Dimer 3971 ng/mLFEU (0-500)
[2021-04-06 05:09] LABS: Heparin anti-factor XA UFH > 2.00 IU/mL (0.30-0.70)
[2021-04-06 05:12] LABS: Alanine Aminotransferase 19 Units/L (7-52); Albumin 2.7 g/dL (3.5-5.7); Albumin/Globulin Ratio 0.8 (1.1-2.2); Alkaline Phosphatase 98 Units/L (34-104); Aspartate Amino Transferase 20 Units/L (13-39); BUN/Creatinine Ratio 31 (6-26); Bilirubin,Total 0.3 mg/dL (0.3-1.0); Blood Urea Nitrogen 15 mg/dL (6-20); C-Reactive Protein 250 mg/L (Less than 10); Calcium 8.6 mg/dL (8.6-10.3); Carbon Dioxide 31 mEq/L (23-29); Chloride 95 mEq/L (98-107); Eosinophils # 0.5 K/mcL (0.0-0.6); Globulin 3.4 g/dL (2.4-3.5); Glucose 205 mg/dL (70-105); Lactate Dehydrogenase 563 Units/L (140-271); Lymphocytes # 1.4 K/mcL (0.6-4.6); Magnesium 1.9 mg/dL (1.6-2.6); Monocytes # 1.4 K/mcL (0.0-1.3); Neutrophils # 18.9 K/mcL (1.6-8.9); Osmolality,Calculated 283 (280-300); Phosphorous 3.9 mg/dL (2.7-4.5); Platelet Estimate Normal (Normal); Potassium 3.6 mEq/L (3.5-5.1); Sodium 133 mEq/L (136-145); Total Protein 6.1 g/dL (6.4-8.9); eGFR For African Americans > 60 (> 60); eGFR For Non-African Americans > 60 (> 60)
[2021-04-06 05:13] LABS: Anisocytosis 1+ (Not Present); Polychromasia 1+ (Not Present)
[2021-04-06 05:27] LABS: Ferritin 347 ng/mL (10-120)
[2021-04-06 05:37] LABS: Folate 8.2 ng/mL (3.0-16.0)
[2021-04-06] MEDS: Insulin LISPRO 300 UNITS/3 ML VIAL SUBQ SCH ×6 (08:03→17:48)
[2021-04-06] MEDS: Furosemide 20 MG/2 ML VIAL IVP SCH (08:03)
[2021-04-06] MEDS: Dexamethasone Sodium Phos/PF 10 MG/ML VIAL IVP SCH (08:03)
[2021-04-06] MEDS: Multivit/Ca/Min/Fe/FA 1 TAB TABLET PO SCH (08:04)
[2021-04-06] MEDS: Lactobacillus 1 EACH CAP.SPRINK PO SCH ×2 (08:04→20:15)
[2021-04-06] MEDS: Chlorhexidine Rinse 15 ML MOUTHWASH MM SCH ×2 (08:05→20:40)
[2021-04-06] MEDS: NIFEdipine XL (24 HR) 60 MG TAB.ER.24 PO SCH (08:05)
[2021-04-06] MEDS: Cholecalciferol (D-3) 1,000 UNIT (25MCG) TABLET PO SCH (08:05)
[2021-04-06] MEDS: Metoprolol XL (24 HR) Succ 25 MG TAB.ER.24H PO SCH (08:05)
[2021-04-06] MEDS: Saline Nasal Spray 44 ML BOTTLE NS SCH ×4 (08:05→20:40)
[2021-04-06] MEDS: Loratadine 10 MG TABLET PO SCH (08:05)
[2021-04-06] MEDS: Artificial Tears SOLN 15 ML BOTTLE BOTH EYES SCH ×4 (08:05→20:40)
[2021-04-06] MEDS: Benzonatate 100 MG CAPSULE PO SCH ×3 (08:05→20:15)
[2021-04-06] MEDS: Heparin 25,000UNIT/250ML 1/2NS 25,000 UNIT/250 ML IV.SOLN IVC SCH ×2 (08:06→20:22)
[2021-04-06] MEDS: Budesonide/Formoterol 160/4.5 1 PUFF INH IH SCH ×2 (08:10→20:35)
[2021-04-06] MEDS: Insulin DETEMIR 100 UNIT/ML X5UNITS SUBQ SCH ×2 (08:26→20:22)
[2021-04-06 12:08] LABS: ABG Base Excess 6 mEq/L (-2 to 3); ABG HCO3 30 mEq/L (21-27); ABG Oxygen Saturation 89 % (95-98); ABG PCO2 43 mmHg (35-45); ABG PH 7.45 pH Units (7.32-7.45); ABG PO2 54 mmHg (85-104); ABG TCO2 32 mEq/L (20-26)
[2021-04-06] MEDS: Azithromycin 250 MG TABLET PO SCH (15:34)
[2021-04-06] MEDS: *HR* Heparin 5,000 UNIT/ML VIAL IVP PRN (15:35)
[2021-04-06] MEDS: cefTRIAXone 2,000 MG in Water for inj. (sterile) 20 ML IVP SCH (17:49)
[2021-04-06] MEDS: Melatonin 3 MG TABLET PO SCH (20:15)
[2021-04-06] MEDS ORDERED: Sildenafil Citrate 20 MG TABLET PO SCH (21:00)
[2021-04-07] MEDS: Saliva Stimulant 44.3ml BOTTLE PO SCH ×12 (00:56→21:29)
[2021-04-07] MEDS: Ipratropium 1 PUFF INHALER IH SCH ×5 (03:37→19:59)
[2021-04-07 04:27] LABS: Immature Granulocytes % 7.5 % (0-4); Mean Platelet Volume 10.3 fL (9.4-12.4); Nucleated Red Blood Cells 0.3 /100 WBC (0); Red Cell Distribution Width 13.2 % (11.5-14.5)
[2021-04-07 04:29] LABS: Basophils % 0.1 %; Eosinophils # 0.2 K/mcL (0.0-0.6); Eosinophils % 0.8 %; Hematocrit 28.9 % (35.3-44.9); Hemoglobin 9.3 g/dL (11.5-15.4); Lymphocytes # 2.3 K/mcL (0.6-4.6); Lymphocytes % 8.6 %; Mean Corpuscular HGB Conc 32.2 g/dL (31.6-35.5); Mean Corpuscular Hemoglobin 30.2 pg (28.0-33.3); Mean Corpuscular Volume 93.8 fL (83.0-100.0); Monocytes # 0.8 K/mcL (0.0-1.3); Monocytes % 3.1 %; Neutrophils # 21.2 K/mcL (1.6-8.9); Platelet Count 296 K/mcL (140-400); Red Blood Count 3.08 M/mcL (3.82-4.97); Segmented Neutrophils % 79.9 %; White Blood Count 26.5 K/mcL (4.3-11.1)
[2021-04-07 04:49] LABS: Alanine Aminotransferase 21 Units/L (7-52); Albumin 2.8 g/dL (3.5-5.7); Albumin/Globulin Ratio 0.8 (1.1-2.2); Alkaline Phosphatase 113 Units/L (34-104); Aspartate Amino Transferase 21 Units/L (13-39); BUN/Creatinine Ratio 26 (6-26); Bilirubin,Total 0.3 mg/dL (0.3-1.0); Blood Urea Nitrogen 14 mg/dL (6-20); Calcium 8.8 mg/dL (8.6-10.3); Carbon Dioxide 33 mEq/L (23-29); Chloride 96 mEq/L (98-107); Globulin 3.5 g/dL (2.4-3.5); Glucose 223 mg/dL (70-105); Lactate Dehydrogenase 563 Units/L (140-271); Osmolality,Calculated 287 (280-300); Phosphorous 3.9 mg/dL (2.7-4.5); Potassium 3.9 mEq/L (3.5-5.1); Sodium 135 mEq/L (136-145); Total Protein 6.3 g/dL (6.4-8.9); eGFR For African Americans > 60 (> 60); eGFR For Non-African Americans > 60 (> 60)
[2021-04-07 05:04] LABS: Ferritin 347 ng/mL (10-120)
[2021-04-07 05:28] LABS: Anisocytosis 1+ (Not Present); Platelet Estimate Normal (Normal); Polychromasia 1+ (Not Present)
[2021-04-07 05:37] LABS: ABG Base Excess 6 mEq/L (-2 to 3); ABG HCO3 32 mEq/L (21-27); ABG Oxygen Saturation 88 % (95-98); ABG PCO2 49 mmHg (35-45); ABG PH 7.42 pH Units (7.32-7.45); ABG PO2 54 mmHg (85-104); ABG TCO2 33 mEq/L (20-26); Blood Gas Modality BiLevel; Blood Gas VT 480 cc
[2021-04-07] MEDS: Heparin 25,000UNIT/250ML 1/2NS 25,000 UNIT/250 ML IV.SOLN IVC SCH ×2 (07:26→19:35)
[2021-04-07] MEDS: Chlorhexidine Rinse 15 ML MOUTHWASH MM SCH ×2 (08:33→20:59)
[2021-04-07] MEDS: Loratadine 10 MG TABLET PO SCH (08:33)
[2021-04-07] MEDS: Insulin LISPRO 300 UNITS/3 ML VIAL SUBQ SCH ×4 (08:33→18:08)
[2021-04-07] MEDS: Multivit/Ca/Min/Fe/FA 1 TAB TABLET PO SCH (08:34)
[2021-04-07] MEDS: Cholecalciferol (D-3) 1,000 UNIT (25MCG) TABLET PO SCH (08:34)
[2021-04-07] MEDS: NIFEdipine XL (24 HR) 60 MG TAB.ER.24 PO SCH (08:46)
[2021-04-07] MEDS: Metoprolol XL (24 HR) Succ 25 MG TAB.ER.24H PO SCH (08:46)
[2021-04-07] MEDS: Furosemide 20 MG/2 ML VIAL IVP SCH (08:46)
[2021-04-07] MEDS: Benzonatate 100 MG CAPSULE PO SCH ×3 (08:46→21:28)
[2021-04-07] MEDS: Dexamethasone Sodium Phos/PF 10 MG/ML VIAL IVP SCH (08:46)
[2021-04-07] MEDS: Lactobacillus 1 EACH CAP.SPRINK PO SCH ×2 (08:46→20:59)
[2021-04-07] MEDS: Sildenafil Citrate 20 MG TABLET PO SCH ×3 (08:47→21:27)
[2021-04-07] MEDS: Cyanocobalamin (B-12) 1,000 MCG TABLET PO SCH (08:47)
[2021-04-07] MEDS: Insulin DETEMIR 100 UNIT/ML X5UNITS SUBQ SCH ×2 (08:47→21:29)
[2021-04-07] MEDS: Artificial Tears SOLN 15 ML BOTTLE BOTH EYES SCH ×4 (09:05→20:59)
[2021-04-07] MEDS: Saline Nasal Spray 44 ML BOTTLE NS SCH ×4 (09:05→20:59)
[2021-04-07] MEDS: Budesonide/Formoterol 160/4.5 1 PUFF INH IH SCH ×2 (13:46→20:01)
[2021-04-07] MEDS: Azithromycin 250 MG TABLET PO SCH (17:49)
[2021-04-07] MEDS: *HR* OxyCODONE/APAP 5/325 TABLET PO PRN (17:50)
[2021-04-07] MEDS: cefTRIAXone 2,000 MG in Water for inj. (sterile) 20 ML IVP SCH (17:54)
[2021-04-07] MEDS: Melatonin 3 MG TABLET PO SCH (21:00)
[2021-04-08] MEDS: Ipratropium 1 PUFF INHALER IH SCH ×6 (00:08→19:55)
[2021-04-08] MEDS: Saliva Stimulant 44.3ml BOTTLE PO SCH ×12 (01:10→20:34)
[2021-04-08] MEDS: Insulin LISPRO 300 UNITS/3 ML VIAL SUBQ SCH ×5 (01:10→23:22)
[2021-04-08 04:26] LABS: Basophils # 0.2 K/mcL (0.0-0.2); Basophils % 0.6 %; Eosinophils # 0.2 K/mcL (0.0-0.6); Eosinophils % 0.9 %; Hematocrit 28.6 % (35.3-44.9); Hemoglobin 9.3 g/dL (11.5-15.4); Immature Granulocytes % 7.1 % (0-4); Lymphocytes # 2.5 K/mcL (0.6-4.6); Lymphocytes % 10.3 %; Mean Corpuscular HGB Conc 32.5 g/dL (31.6-35.5); Mean Corpuscular Hemoglobin 30.8 pg (28.0-33.3); Mean Corpuscular Volume 94.7 fL (83.0-100.0); Mean Platelet Volume 10.1 fL (9.4-12.4); Monocytes # 0.8 K/mcL (0.0-1.3); Monocytes % 3.1 %; Nucleated Red Blood Cells 0.2 /100 WBC (0); Platelet Count 291 K/mcL (140-400); Red Blood Count 3.02 M/mcL (3.82-4.97); Red Cell Distribution Width 13.3 % (11.5-14.5); White Blood Count 24.4 K/mcL (4.3-11.1)
[2021-04-08 04:36] LABS: INR 1.3; Prothrombin Time 14.9 Seconds (9.4-12.1)
[2021-04-08 04:37] LABS: Heparin anti-factor XA UFH 0.59 IU/mL (0.30-0.70)
[2021-04-08 04:46] LABS: Alanine Aminotransferase 20 Units/L (7-52); Albumin 2.7 g/dL (3.5-5.7); Albumin/Globulin Ratio 0.8 (1.1-2.2); Alkaline Phosphatase 101 Units/L (34-104); Aspartate Amino Transferase 21 Units/L (13-39); BUN/Creatinine Ratio 29 (6-26); Bilirubin,Total 0.4 mg/dL (0.3-1.0); Blood Urea Nitrogen 15 mg/dL (6-20); Calcium 8.7 mg/dL (8.6-10.3); Carbon Dioxide 34 mEq/L (23-29); Chloride 98 mEq/L (98-107); Globulin 3.3 g/dL (2.4-3.5); Glucose 163 mg/dL (70-105); Lactate Dehydrogenase 512 Units/L (140-271); Osmolality,Calculated 292 (280-300); Phosphorous 3.7 mg/dL (2.7-4.5); Potassium 3.8 mEq/L (3.5-5.1); Sodium 139 mEq/L (136-145); eGFR For African Americans > 60 (> 60); eGFR For Non-African Americans > 60 (> 60)
[2021-04-08 05:03] LABS: Ferritin 414 ng/mL (10-120)
[2021-04-08 05:20] LABS: ABG Base Excess 7 mEq/L (-2 to 3); ABG HCO3 32 mEq/L (21-27); ABG Oxygen Saturation 88 % (95-98); ABG PCO2 47 mmHg (35-45); ABG PH 7.44 pH Units (7.32-7.45); ABG PO2 53 mmHg (85-104); ABG TCO2 33 mEq/L (20-26); Blood Gas Modality AVAPS; Blood Gas VT 480 cc
[2021-04-08 05:43] LABS: Platelet Estimate Normal (Normal); Reactive Lymphocytes Present (Not Present); Smudge Cells Present (Not Present)
[2021-04-08] MEDS: Budesonide/Formoterol 160/4.5 1 PUFF INH IH SCH ×2 (07:43→19:55)
[2021-04-08] MEDS: Heparin 25,000UNIT/250ML 1/2NS 25,000 UNIT/250 ML IV.SOLN IVC SCH ×2 (09:03→20:33)
[2021-04-08] MEDS: Dexamethasone Sodium Phos/PF 10 MG/ML VIAL IVP SCH (09:03)
[2021-04-08] MEDS: Furosemide 20 MG/2 ML VIAL IVP SCH (09:03)
[2021-04-08] MEDS: Saline Nasal Spray 44 ML BOTTLE NS SCH ×4 (09:04→20:12)
[2021-04-08] MEDS: Chlorhexidine Rinse 15 ML MOUTHWASH MM SCH ×2 (09:04→20:11)
[2021-04-08] MEDS: Artificial Tears SOLN 15 ML BOTTLE BOTH EYES SCH ×4 (09:04→20:12)
[2021-04-08] MEDS: Lactobacillus 1 EACH CAP.SPRINK PO SCH ×3 (10:42→20:11)
[2021-04-08] MEDS: Loratadine 10 MG TABLET PO SCH ×2 (10:42→11:36)
[2021-04-08] MEDS: Multivit/Ca/Min/Fe/FA 1 TAB TABLET PO SCH ×2 (10:42→11:36)
[2021-04-08] MEDS: Cholecalciferol (D-3) 1,000 UNIT (25MCG) TABLET PO SCH ×2 (10:43→11:36)
[2021-04-08] MEDS: Cyanocobalamin (B-12) 1,000 MCG TABLET PO SCH ×2 (10:43→11:36)
[2021-04-08] MEDS: NIFEdipine XL (24 HR) 60 MG TAB.ER.24 PO SCH (11:36)
[2021-04-08] MEDS: Benzonatate 100 MG CAPSULE PO SCH ×3 (11:36→20:34)
[2021-04-08] MEDS: Metoprolol XL (24 HR) Succ 25 MG TAB.ER.24H PO SCH (11:36)
[2021-04-08] MEDS: Sildenafil Citrate 20 MG TABLET PO SCH ×3 (11:36→20:11)
[2021-04-08] MEDS: Acetaminophen 325 MG TABLET PO PRN (11:36)
[2021-04-08] MEDS: Insulin DETEMIR 100 UNIT/ML X5UNITS SUBQ SCH ×2 (11:37→20:11)
[2021-04-08] MEDS: *HR* OxyCODONE/APAP 5/325 TABLET PO PRN ×2 (11:43→21:03)
[2021-04-08] MEDS: Azithromycin 250 MG TABLET PO SCH (17:15)
[2021-04-08] MEDS: cefTRIAXone 2,000 MG in Water for inj. (sterile) 20 ML IVP SCH (17:16)
[2021-04-08] MEDS: Melatonin 3 MG TABLET PO SCH (20:12)
[2021-04-09] MEDS: Ipratropium 1 PUFF INHALER IH SCH ×7 (00:03→23:44)
[2021-04-09] MEDS: Saliva Stimulant 44.3ml BOTTLE PO SCH ×12 (00:17→22:17)
[2021-04-09 04:39] LABS: Eosinophils % 1.4 %; Lymphocytes % 9.7 %; Monocytes % 3.1 %; Nucleated Red Blood Cells 0.2 /100 WBC (0)
[2021-04-09 04:41] LABS: Basophils # 0.2 K/mcL (0.0-0.2); Basophils % 0.7 %; Eosinophils # 0.4 K/mcL (0.0-0.6); Hematocrit 30.4 % (35.3-44.9); Hemoglobin 9.7 g/dL (11.5-15.4); Immature Granulocytes % 6.1 % (0-4); Lymphocytes # 2.8 K/mcL (0.6-4.6); Mean Corpuscular HGB Conc 31.9 g/dL (31.6-35.5); Mean Corpuscular Hemoglobin 30.4 pg (28.0-33.3); Mean Corpuscular Volume 95.3 fL (83.0-100.0); Mean Platelet Volume 10.2 fL (9.4-12.4); Monocytes # 0.9 K/mcL (0.0-1.3); Neutrophils # 22.6 K/mcL (1.6-8.9); Platelet Count 317 K/mcL (140-400); Red Blood Count 3.19 M/mcL (3.82-4.97); Red Cell Distribution Width 13.8 % (11.5-14.5); White Blood Count 28.6 K/mcL (4.3-11.1)
[2021-04-09 04:42] LABS: C-Reactive Protein 150 mg/L (Less than 10)
[2021-04-09 04:43] LABS: Heparin anti-factor XA UFH 0.46 IU/mL (0.30-0.70)
[2021-04-09 05:00] LABS: Alanine Aminotransferase 20 Units/L (7-52); Albumin 2.8 g/dL (3.5-5.7); Albumin/Globulin Ratio 0.8 (1.1-2.2); Alkaline Phosphatase 99 Units/L (34-104); Aspartate Amino Transferase 22 Units/L (13-39); BUN/Creatinine Ratio 37 (6-26); Bilirubin,Total 0.4 mg/dL (0.3-1.0); Blood Urea Nitrogen 19 mg/dL (6-20); C-Reactive Protein 141 mg/L (Less than 10); Calcium 8.5 mg/dL (8.6-10.3); Carbon Dioxide 35 mEq/L (23-29); Chloride 97 mEq/L (98-107); Globulin 3.4 g/dL (2.4-3.5); Glucose 174 mg/dL (70-105); Lactate Dehydrogenase 546 Units/L (140-271); Osmolality,Calculated 292 (280-300); Phosphorous 3.7 mg/dL (2.7-4.5); Potassium 3.7 mEq/L (3.5-5.1); Sodium 138 mEq/L (136-145); Total Protein 6.2 g/dL (6.4-8.9); eGFR For African Americans > 60 (> 60); eGFR For Non-African Americans > 60 (> 60)
[2021-04-09 05:09] LABS: Platelet Estimate Normal (Normal); Polychromasia 1+ (Not Present)
[2021-04-09 05:17] LABS: Ferritin 394 ng/mL (10-120)
[2021-04-09] MEDS: Insulin LISPRO 300 UNITS/3 ML VIAL SUBQ SCH ×4 (05:43→23:54)
[2021-04-09] MEDS: Heparin 25,000UNIT/250ML 1/2NS 25,000 UNIT/250 ML IV.SOLN IVC SCH ×2 (06:49→17:47)
[2021-04-09] MEDS: Budesonide/Formoterol 160/4.5 1 PUFF INH IH SCH ×2 (07:36→20:13)
[2021-04-09] MEDS: *HR* OxyCODONE/APAP 5/325 TABLET PO PRN (08:16)
[2021-04-09] MEDS: Cholecalciferol (D-3) 1,000 UNIT (25MCG) TABLET PO SCH (08:17)
[2021-04-09] MEDS: Multivit/Ca/Min/Fe/FA 1 TAB TABLET PO SCH (08:17)
[2021-04-09] MEDS: Furosemide 20 MG/2 ML VIAL IVP SCH (08:17)
[2021-04-09] MEDS: Metoprolol XL (24 HR) Succ 25 MG TAB.ER.24H PO SCH (08:17)
[2021-04-09] MEDS: NIFEdipine XL (24 HR) 60 MG TAB.ER.24 PO SCH (08:17)
[2021-04-09] MEDS: Lactobacillus 1 EACH CAP.SPRINK PO SCH ×2 (08:17→20:06)
[2021-04-09] MEDS: Benzonatate 100 MG CAPSULE PO SCH ×3 (08:17→20:06)
[2021-04-09] MEDS: Loratadine 10 MG TABLET PO SCH (08:17)
[2021-04-09] MEDS: Sildenafil Citrate 20 MG TABLET PO SCH ×3 (08:17→20:07)
[2021-04-09] MEDS: Cyanocobalamin (B-12) 1,000 MCG TABLET PO SCH (08:17)
[2021-04-09] MEDS: Chlorhexidine Rinse 15 ML MOUTHWASH MM SCH ×2 (08:18→20:08)
[2021-04-09] MEDS: Saline Nasal Spray 44 ML BOTTLE NS SCH ×4 (08:19→20:08)
[2021-04-09] MEDS: Insulin DETEMIR 100 UNIT/ML X5UNITS SUBQ SCH ×2 (08:19→20:07)
[2021-04-09] MEDS: Artificial Tears SOLN 15 ML BOTTLE BOTH EYES SCH ×4 (08:19→20:08)
[2021-04-09] MEDS: *HR* OxyCODONE Immed Rel 5 MG TABLET PO PRN (11:43)
[2021-04-09] MEDS: Azithromycin 250 MG TABLET PO SCH (17:17)
[2021-04-09] MEDS: cefTRIAXone 2,000 MG in Water for inj. (sterile) 20 ML IVP SCH (17:17)
[2021-04-09] MEDS: Melatonin 3 MG TABLET PO SCH (20:06)
[2021-04-09] MEDS: *HR* HYDROcodone/Acet 5/325 mg TABLET PO PRN (20:07)
[2021-04-10] MEDS: Saliva Stimulant 44.3ml BOTTLE PO SCH ×10 (00:08→23:11)
[2021-04-10] MEDS: *HR* OxyCODONE Immed Rel 5 MG TABLET PO PRN ×3 (00:40→21:15)
[2021-04-10 04:19] LABS: Basophils % 0.4 %
[2021-04-10 04:20] LABS: Basophils # 0.1 K/mcL (0.0-0.2); Eosinophils # 0.5 K/mcL (0.0-0.6); Eosinophils % 1.8 %; Hematocrit 30.5 % (35.3-44.9); Hemoglobin 9.9 g/dL (11.5-15.4); Immature Granulocytes % 4.9 % (0-4); Lymphocytes # 2.6 K/mcL (0.6-4.6); Lymphocytes % 9.4 %; Mean Corpuscular HGB Conc 32.5 g/dL (31.6-35.5); Mean Corpuscular Hemoglobin 31.1 pg (28.0-33.3); Mean Corpuscular Volume 95.9 fL (83.0-100.0); Monocytes # 0.9 K/mcL (0.0-1.3); Monocytes % 3.1 %; Neutrophils # 22.2 K/mcL (1.6-8.9); Nucleated Red Blood Cells 0.2 /100 WBC (0); Platelet Count 214 K/mcL (140-400); Red Blood Count 3.18 M/mcL (3.82-4.97); Segmented Neutrophils % 80.4 %; White Blood Count 27.6 K/mcL (4.3-11.1)
[2021-04-10] MEDS: Ipratropium 1 PUFF INHALER IH SCH ×6 (04:23→23:20)
[2021-04-10 04:27] LABS: Heparin anti-factor XA UFH 0.21 IU/mL (0.30-0.70)
[2021-04-10 04:48] LABS: Alanine Aminotransferase 19 Units/L (7-52); Albumin 2.9 g/dL (3.5-5.7); Albumin/Globulin Ratio 0.8 (1.1-2.2); Alkaline Phosphatase 95 Units/L (34-104); Aspartate Amino Transferase 24 Units/L (13-39); BUN/Creatinine Ratio 38 (6-26); Bilirubin,Total 0.4 mg/dL (0.3-1.0); Blood Urea Nitrogen 20 mg/dL (6-20); C-Reactive Protein 162 mg/L (Less than 10); Calcium 8.8 mg/dL (8.6-10.3); Carbon Dioxide 33 mEq/L (23-29); Chloride 99 mEq/L (98-107); Globulin 3.5 g/dL (2.4-3.5); Glucose 163 mg/dL (70-105); Lactate Dehydrogenase 574 Units/L (140-271); Osmolality,Calculated 294 (280-300); Phosphorous 4.4 mg/dL (2.7-4.5); Potassium 3.9 mEq/L (3.5-5.1); Sodium 139 mEq/L (136-145); Total Protein 6.4 g/dL (6.4-8.9); eGFR For African Americans > 60 (> 60); eGFR For Non-African Americans > 60 (> 60)
[2021-04-10 05:05] LABS: Ferritin 407 ng/mL (10-120)
[2021-04-10] MEDS: Heparin 25,000UNIT/250ML 1/2NS 25,000 UNIT/250 ML IV.SOLN IVC SCH (05:24)
[2021-04-10] MEDS: Insulin LISPRO 300 UNITS/3 ML VIAL SUBQ SCH ×4 (05:43→21:14)
[2021-04-10] MEDS: *HR* Heparin 5,000 UNIT/ML VIAL IVP PRN (05:43)
[2021-04-10] MEDS: Budesonide/Formoterol 160/4.5 1 PUFF INH IH SCH ×2 (07:12→20:17)
[2021-04-10] MEDS: Chlorhexidine Rinse 15 ML MOUTHWASH MM SCH ×2 (08:41→21:13)
[2021-04-10] MEDS: Saline Nasal Spray 44 ML BOTTLE NS SCH ×4 (08:41→21:13)
[2021-04-10] MEDS: Sildenafil Citrate 20 MG TABLET PO SCH ×3 (08:42→21:15)
[2021-04-10] MEDS: NIFEdipine XL (24 HR) 60 MG TAB.ER.24 PO SCH (08:42)
[2021-04-10] MEDS: Metoprolol XL (24 HR) Succ 25 MG TAB.ER.24H PO SCH (08:42)
[2021-04-10] MEDS: Lactobacillus 1 EACH CAP.SPRINK PO SCH ×2 (08:42→21:16)
[2021-04-10] MEDS: Loratadine 10 MG TABLET PO SCH (08:42)
[2021-04-10] MEDS: Benzonatate 100 MG CAPSULE PO SCH ×3 (08:42→21:15)
[2021-04-10] MEDS: Multivit/Ca/Min/Fe/FA 1 TAB TABLET PO SCH (08:43)
[2021-04-10] MEDS: Furosemide 20 MG/2 ML VIAL IVP SCH (08:43)
[2021-04-10] MEDS: Cyanocobalamin (B-12) 1,000 MCG TABLET PO SCH (08:43)
[2021-04-10] MEDS: Cholecalciferol (D-3) 1,000 UNIT (25MCG) TABLET PO SCH (08:43)
[2021-04-10] MEDS: Artificial Tears SOLN 15 ML BOTTLE BOTH EYES SCH ×4 (08:44→21:13)
[2021-04-10] MEDS ORDERED: *HR* Rivaroxaban 15 MG TABLET PO SCH (09:00)
[2021-04-10] MEDS: Insulin DETEMIR 100 UNIT/ML X5UNITS SUBQ SCH ×2 (11:38→21:14)
[2021-04-10] MEDS ORDERED: *HR* Dextrose 50 % in Water (Syg) 50 ML SYRINGE IVP PRN (13:22)
[2021-04-10] MEDS ORDERED: D5% in Water 1,000 ML IVC PRN (13:22)
[2021-04-10] MEDS ORDERED: Dextrose Gel 15 GM/37.5 ML TUBE PO PRN ×2 (13:22)
[2021-04-10] MEDS: cefTRIAXone 2,000 MG in Water for inj. (sterile) 20 ML IVP SCH (16:46)
[2021-04-10] MEDS: Azithromycin 250 MG TABLET PO SCH (16:46)
[2021-04-10] MEDS: hydrOXYzine pamoate 25 MG CAPSULE PO PRN (17:32)
[2021-04-10] MEDS ORDERED: *HR* Enoxaparin 100 MG/ML SYRINGE SQ SCH (21:00)
[2021-04-10] MEDS: Melatonin 3 MG TABLET PO SCH (21:15)
[2021-04-11] MEDS: Saliva Stimulant 44.3ml BOTTLE PO SCH ×10 (00:38→22:59)
[2021-04-11] MEDS: hydrOXYzine pamoate 25 MG CAPSULE PO PRN ×2 (03:53→19:38)
[2021-04-11] MEDS: Ipratropium 1 PUFF INHALER IH SCH ×6 (03:55→23:22)
[2021-04-11 05:25] LABS: BUN/Creatinine Ratio 45 (6-26); Blood Urea Nitrogen 22 mg/dL (6-20); C-Reactive Protein 166 mg/L (Less than 10); Calcium 8.9 mg/dL (8.6-10.3); Carbon Dioxide 32 mEq/L (23-29); Chloride 99 mEq/L (98-107); Glucose 153 mg/dL (70-105); Osmolality,Calculated 296 (280-300); Potassium 3.9 mEq/L (3.5-5.1); Sodium 140 mEq/L (136-145); eGFR For African Americans > 60 (> 60); eGFR For Non-African Americans > 60 (> 60)
[2021-04-11 05:28] LABS: Hemoglobin 9.9 g/dL (11.5-15.4); Mean Corpuscular Volume 96.6 fL (83.0-100.0); Nucleated Red Blood Cells 0.2 /100 WBC (0); Red Cell Distribution Width 14.2 % (11.5-14.5)
[2021-04-11 05:30] LABS: Hematocrit 30.8 % (35.3-44.9); Mean Corpuscular HGB Conc 32.1 g/dL (31.6-35.5); Mean Platelet Volume 10.6 fL (9.4-12.4); Platelet Count 110 K/mcL (140-400); Red Blood Count 3.19 M/mcL (3.82-4.97); White Blood Count 25.7 K/mcL (4.3-11.1)
[2021-04-11] MEDS ORDERED: *HR* Heparin 5,000 UNIT/ML VIAL IVP ONE (07:34)
[2021-04-11] MEDS: Budesonide/Formoterol 160/4.5 1 PUFF INH IH SCH ×2 (07:42→19:56)
[2021-04-11 08:04] LABS: Lymphocytes # 2.6 K/mcL (0.6-4.6); Neutrophils # 21.1 K/mcL (1.6-8.9); Platelet Estimate Normal (Normal)
[2021-04-11] MEDS: Insulin DETEMIR 100 UNIT/ML X5UNITS SUBQ SCH ×2 (10:12→22:53)
[2021-04-11] MEDS: Chlorhexidine Rinse 15 ML MOUTHWASH MM SCH ×2 (10:12→19:37)
[2021-04-11] MEDS: Multivit/Ca/Min/Fe/FA 1 TAB TABLET PO SCH (10:13)
[2021-04-11] MEDS: Furosemide 20 MG/2 ML VIAL IVP SCH (10:13)
[2021-04-11] MEDS: Cyanocobalamin (B-12) 1,000 MCG TABLET PO SCH (10:14)
[2021-04-11] MEDS: Lactobacillus 1 EACH CAP.SPRINK PO SCH ×2 (10:14→19:38)
[2021-04-11] MEDS: Cholecalciferol (D-3) 1,000 UNIT (25MCG) TABLET PO SCH (10:14)
[2021-04-11] MEDS: Sildenafil Citrate 20 MG TABLET PO SCH ×3 (10:14→22:52)
[2021-04-11] MEDS: Benzonatate 100 MG CAPSULE PO SCH ×3 (10:14→19:38)
[2021-04-11] MEDS: Metoprolol XL (24 HR) Succ 25 MG TAB.ER.24H PO SCH (10:14)
[2021-04-11] MEDS: Loratadine 10 MG TABLET PO SCH (10:14)
[2021-04-11] MEDS: NIFEdipine XL (24 HR) 60 MG TAB.ER.24 PO SCH (10:14)
[2021-04-11] MEDS: Saline Nasal Spray 44 ML BOTTLE NS SCH ×4 (10:15→19:38)
[2021-04-11] MEDS: Heparin 25,000UNIT/250ML 1/2NS 25,000 UNIT/250 ML IV.SOLN IVC SCH ×2 (10:15→22:55)
[2021-04-11] MEDS: Insulin LISPRO 300 UNITS/3 ML VIAL SUBQ SCH ×4 (10:34→22:53)
[2021-04-11] MEDS: *HR* OxyCODONE Immed Rel 5 MG TABLET PO PRN (10:39)
[2021-04-11] MEDS: Artificial Tears SOLN 15 ML BOTTLE BOTH EYES SCH ×4 (11:47→22:58)
[2021-04-11] MEDS ORDERED: *HR* Heparin 5,000 UNIT/ML VIAL IVP PRN (12:00)
[2021-04-11] MEDS: *HR* HYDROcodone/Acet 5/325 mg TABLET PO PRN (19:37)
[2021-04-11] MEDS: Melatonin 3 MG TABLET PO SCH (19:38)
[2021-04-12] MEDS: Saliva Stimulant 44.3ml BOTTLE PO SCH ×6 (03:05→11:45)
[2021-04-12] MEDS: Ipratropium 1 PUFF INHALER IH SCH ×6 (03:53→23:08)
[2021-04-12 04:48] LABS: Basophils # 0.1 K/mcL (0.0-0.2); Basophils % 0.4 %; Eosinophils # 0.2 K/mcL (0.0-0.6); Eosinophils % 0.8 %; Hematocrit 29.8 % (35.3-44.9); Hemoglobin 9.2 g/dL (11.5-15.4); Immature Granulocytes % 4.1 % (0-4); Lymphocytes # 1.9 K/mcL (0.6-4.6); Lymphocytes % 8.9 %; Mean Corpuscular HGB Conc 30.9 g/dL (31.6-35.5); Mean Corpuscular Hemoglobin 30.1 pg (28.0-33.3); Mean Corpuscular Volume 97.4 fL (83.0-100.0); Mean Platelet Volume 11.2 fL (9.4-12.4); Monocytes # 0.7 K/mcL (0.0-1.3); Monocytes % 3.4 %; Neutrophils # 17.5 K/mcL (1.6-8.9); Platelet Count 108 K/mcL (140-400); Red Blood Count 3.06 M/mcL (3.82-4.97); Red Cell Distribution Width 14.1 % (11.5-14.5); Segmented Neutrophils % 82.4 %; White Blood Count 21.2 K/mcL (4.3-11.1)
[2021-04-12 05:03] LABS: BUN/Creatinine Ratio 47 (6-26); Blood Urea Nitrogen 21 mg/dL (6-20); Calcium 9.1 mg/dL (8.6-10.3); Carbon Dioxide 34 mEq/L (23-29); Chloride 99 mEq/L (98-107); Glucose 155 mg/dL (70-105); Osmolality,Calculated 294 (280-300); Potassium 4.2 mEq/L (3.5-5.1); Sodium 139 mEq/L (136-145); eGFR For African Americans > 60 (> 60); eGFR For Non-African Americans > 60 (> 60)
[2021-04-12] MEDS: Budesonide/Formoterol 160/4.5 1 PUFF INH IH SCH ×2 (07:54→20:40)
[2021-04-12] MEDS: Furosemide 20 MG/2 ML VIAL IVP SCH (08:15)
[2021-04-12] MEDS: Cholecalciferol (D-3) 1,000 UNIT (25MCG) TABLET PO SCH (08:16)
[2021-04-12] MEDS: Benzonatate 100 MG CAPSULE PO SCH ×3 (08:16→21:32)
[2021-04-12] MEDS: Multivit/Ca/Min/Fe/FA 1 TAB TABLET PO SCH (08:16)
[2021-04-12] MEDS: NIFEdipine XL (24 HR) 60 MG TAB.ER.24 PO SCH (08:16)
[2021-04-12] MEDS: Sildenafil Citrate 20 MG TABLET PO SCH ×3 (08:16→21:33)
[2021-04-12] MEDS: Metoprolol XL (24 HR) Succ 25 MG TAB.ER.24H PO SCH (08:17)
[2021-04-12] MEDS: Chlorhexidine Rinse 15 ML MOUTHWASH MM SCH (08:17)
[2021-04-12] MEDS: Loratadine 10 MG TABLET PO SCH (08:17)
[2021-04-12] MEDS: Cyanocobalamin (B-12) 1,000 MCG TABLET PO SCH (08:17)
[2021-04-12] MEDS: *HR* OxyCODONE Immed Rel 5 MG TABLET PO PRN ×2 (08:17→12:36)
[2021-04-12] MEDS: Insulin LISPRO 300 UNITS/3 ML VIAL SUBQ SCH ×4 (08:19→21:43)
[2021-04-12] MEDS: Insulin DETEMIR 100 UNIT/ML X5UNITS SUBQ SCH ×2 (08:19→21:43)
[2021-04-12] MEDS: Lactobacillus 1 EACH CAP.SPRINK PO SCH ×2 (08:19→21:33)
[2021-04-12] MEDS: Saline Nasal Spray 44 ML BOTTLE NS SCH ×2 (08:20→11:46)
[2021-04-12] MEDS: *HR* HYDROcodone/Acet 5/325 mg TABLET PO PRN ×2 (10:58→21:34)
[2021-04-12] MEDS: Artificial Tears SOLN 15 ML BOTTLE BOTH EYES SCH ×2 (11:44→11:47)
[2021-04-12] MEDS ORDERED: Artificial Tears SOLN 15 ML BOTTLE BOTH EYES PRN (11:51)
[2021-04-12] MEDS ORDERED: Chlorhexidine Rinse 15 ML MOUTHWASH MM PRN (11:55)
[2021-04-12] MEDS ORDERED: Saline Nasal Spray 44 ML BOTTLE NS PRN (11:57)
[2021-04-12] MEDS ORDERED: Saliva Stimulant 44.3ml BOTTLE PO PRN (11:58)
[2021-04-12] MEDS: Heparin 25,000UNIT/250ML 1/2NS 25,000 UNIT/250 ML IV.SOLN IVC SCH (12:24)
[2021-04-12] MEDS: Melatonin 3 MG TABLET PO SCH (21:35)
[2021-04-13] MEDS ORDERED: traZODone 50 MG TABLET PO PRN (01:48)
[2021-04-13] MEDS: Ipratropium 1 PUFF INHALER IH SCH ×6 (03:44→23:30)
[2021-04-13] MEDS: *HR* OxyCODONE Immed Rel 5 MG TABLET PO PRN (04:04)
[2021-04-13 05:29] LABS: BUN/Creatinine Ratio 48 (6-26); Blood Urea Nitrogen 23 mg/dL (6-20); C-Reactive Protein 145 mg/L (Less than 10); Calcium 8.9 mg/dL (8.6-10.3); Carbon Dioxide 35 mEq/L (23-29); Chloride 98 mEq/L (98-107); Glucose 159 mg/dL (70-105); Osmolality,Calculated 291 (280-300); Potassium 4.3 mEq/L (3.5-5.1); Sodium 137 mEq/L (136-145); eGFR For African Americans > 60 (> 60); eGFR For Non-African Americans > 60 (> 60)
[2021-04-13 05:30] LABS: Heparin anti-factor XA UFH 0.32 IU/mL (0.30-0.70)
[2021-04-13] MEDS: Insulin LISPRO 300 UNITS/3 ML VIAL SUBQ SCH ×4 (08:30→21:27)
[2021-04-13] MEDS: Metoprolol XL (24 HR) Succ 25 MG TAB.ER.24H PO SCH (08:33)
[2021-04-13] MEDS: Sildenafil Citrate 20 MG TABLET PO SCH ×3 (08:33→21:36)
[2021-04-13] MEDS: Benzonatate 100 MG CAPSULE PO SCH ×3 (08:33→21:36)
[2021-04-13] MEDS: Lactobacillus 1 EACH CAP.SPRINK PO SCH ×2 (08:34→21:36)
[2021-04-13] MEDS: Cholecalciferol (D-3) 1,000 UNIT (25MCG) TABLET PO SCH (08:34)
[2021-04-13] MEDS: NIFEdipine XL (24 HR) 60 MG TAB.ER.24 PO SCH (08:34)
[2021-04-13] MEDS: Cyanocobalamin (B-12) 1,000 MCG TABLET PO SCH (08:34)
[2021-04-13] MEDS: Loratadine 10 MG TABLET PO SCH (08:34)
[2021-04-13] MEDS: Multivit/Ca/Min/Fe/FA 1 TAB TABLET PO SCH (08:34)
[2021-04-13] MEDS: Furosemide 20 MG/2 ML VIAL IVP SCH (08:37)
[2021-04-13] MEDS: Insulin DETEMIR 100 UNIT/ML X5UNITS SUBQ SCH ×2 (08:38→21:36)
[2021-04-13] MEDS: *HR* HYDROcodone/Acet 5/325 mg TABLET PO PRN (08:40)
[2021-04-13] MEDS: Budesonide/Formoterol 160/4.5 1 PUFF INH IH SCH ×2 (08:47→23:30)
[2021-04-13] MEDS: Heparin 25,000UNIT/250ML 1/2NS 25,000 UNIT/250 ML IV.SOLN IVC SCH ×2 (11:38→16:38)
[2021-04-13 14:52] LABS: Basophils # 0.1 K/mcL (0.0-0.2); Basophils % 0.3 %; Eosinophils # 0.4 K/mcL (0.0-0.6); Eosinophils % 1.9 %; Hematocrit 29.9 % (35.3-44.9); Hemoglobin 9.4 g/dL (11.5-15.4); Immature Granulocytes % 3.8 % (0-4); Lymphocytes # 0.8 K/mcL (0.6-4.6); Lymphocytes % 4.4 %; Mean Corpuscular HGB Conc 31.4 g/dL (31.6-35.5); Mean Corpuscular Hemoglobin 30.9 pg (28.0-33.3); Mean Corpuscular Volume 98.4 fL (83.0-100.0); Monocytes # 0.4 K/mcL (0.0-1.3); Monocytes % 2.2 %; Neutrophils # 16.1 K/mcL (1.6-8.9); Platelet Count 134 K/mcL (140-400); Red Blood Count 3.04 M/mcL (3.82-4.97); Red Cell Distribution Width 14.1 % (11.5-14.5); Segmented Neutrophils % 87.4 %; White Blood Count 18.5 K/mcL (4.3-11.1)
[2021-04-13] MEDS: Melatonin 3 MG TABLET PO SCH (21:36)
[2021-04-14] MEDS: *HR* HYDROcodone/Acet 5/325 mg TABLET PO PRN ×2 (01:38→20:26)
[2021-04-14] MEDS: Ipratropium 1 PUFF INHALER IH SCH ×6 (04:27→23:26)
[2021-04-14] MEDS: Heparin 25,000UNIT/250ML 1/2NS 25,000 UNIT/250 ML IV.SOLN IVC SCH ×2 (05:02→20:31)
[2021-04-14 05:31] LABS: Basophils # 0.1 K/mcL (0.0-0.2); Basophils % 0.4 %; Eosinophils # 0.9 K/mcL (0.0-0.6); Eosinophils % 5.7 %; Hematocrit 29.1 % (35.3-44.9); Hemoglobin 8.9 g/dL (11.5-15.4); Immature Granulocytes % 3.2 % (0-4); Lymphocytes # 2.2 K/mcL (0.6-4.6); Lymphocytes % 13.8 %; Mean Corpuscular HGB Conc 30.6 g/dL (31.6-35.5); Mean Corpuscular Hemoglobin 29.8 pg (28.0-33.3); Mean Corpuscular Volume 97.3 fL (83.0-100.0); Mean Platelet Volume 10.7 fL (9.4-12.4); Monocytes # 0.7 K/mcL (0.0-1.3); Monocytes % 4.7 %; Neutrophils # 11.3 K/mcL (1.6-8.9); Nucleated Red Blood Cells 0.1 /100 WBC (0); Platelet Count 130 K/mcL (140-400); Red Blood Count 2.99 M/mcL (3.82-4.97); Red Cell Distribution Width 14.1 % (11.5-14.5); Segmented Neutrophils % 72.2 %; White Blood Count 15.7 K/mcL (4.3-11.1)
[2021-04-14 05:41] LABS: BUN/Creatinine Ratio 38 (6-26); Blood Urea Nitrogen 20 mg/dL (6-20); Calcium 8.8 mg/dL (8.6-10.3); Carbon Dioxide 36 mEq/L (23-29); Chloride 99 mEq/L (98-107); Glucose 114 mg/dL (70-105); Osmolality,Calculated 293 (280-300); Potassium 4.1 mEq/L (3.5-5.1); Sodium 140 mEq/L (136-145); eGFR For African Americans > 60 (> 60); eGFR For Non-African Americans > 60 (> 60)
[2021-04-14] MEDS: Budesonide/Formoterol 160/4.5 1 PUFF INH IH SCH ×2 (07:35→20:39)
[2021-04-14] MEDS: Insulin LISPRO 300 UNITS/3 ML VIAL SUBQ SCH ×4 (08:04→20:27)
[2021-04-14] MEDS: Lactobacillus 1 EACH CAP.SPRINK PO SCH ×2 (08:17→21:06)
[2021-04-14] MEDS: Cyanocobalamin (B-12) 1,000 MCG TABLET PO SCH (08:17)
[2021-04-14] MEDS: Metoprolol XL (24 HR) Succ 25 MG TAB.ER.24H PO SCH (08:17)
[2021-04-14] MEDS: Benzonatate 100 MG CAPSULE PO SCH ×3 (08:17→20:22)
[2021-04-14] MEDS: Cholecalciferol (D-3) 1,000 UNIT (25MCG) TABLET PO SCH (08:17)
[2021-04-14] MEDS: Loratadine 10 MG TABLET PO SCH (08:17)
[2021-04-14] MEDS: NIFEdipine XL (24 HR) 60 MG TAB.ER.24 PO SCH (08:17)
[2021-04-14] MEDS: Multivit/Ca/Min/Fe/FA 1 TAB TABLET PO SCH (08:17)
[2021-04-14] MEDS: Sildenafil Citrate 20 MG TABLET PO SCH (08:17)
[2021-04-14] MEDS: Insulin DETEMIR 100 UNIT/ML X5UNITS SUBQ SCH ×2 (08:23→20:26)
[2021-04-14] MEDS: Furosemide 20 MG/2 ML VIAL IVP SCH (08:23)
[2021-04-14] MEDS: Melatonin 3 MG TABLET PO SCH (20:26)
[2021-04-14 22:07] LABS: Phosphorous 3.8 mg/dL (2.7-4.5); Troponin I < 0.03 ng/mL (< 0.04)
[2021-04-15] MEDS: Ipratropium 1 PUFF INHALER IH SCH ×4 (03:50→16:35)
[2021-04-15] MEDS: *HR* HYDROcodone/Acet 5/325 mg TABLET PO PRN (04:52)
[2021-04-15 05:39] LABS: Basophils # 0.1 K/mcL (0.0-0.2); Basophils % 0.4 %; Eosinophils # 1.1 K/mcL (0.0-0.6); Eosinophils % 6.8 %; Hemoglobin 9.3 g/dL (11.5-15.4); Immature Granulocytes % 2.7 % (0-4); Lymphocytes # 2.1 K/mcL (0.6-4.6); Lymphocytes % 12.3 %; Mean Corpuscular Hemoglobin 30.1 pg (28.0-33.3); Mean Corpuscular Volume 97.1 fL (83.0-100.0); Mean Platelet Volume 10.7 fL (9.4-12.4); Monocytes # 0.7 K/mcL (0.0-1.3); Monocytes % 4.1 %; Neutrophils # 12.3 K/mcL (1.6-8.9); Nucleated Red Blood Cells 0.1 /100 WBC (0); Platelet Count 153 K/mcL (140-400); Red Blood Count 3.09 M/mcL (3.82-4.97); Red Cell Distribution Width 14.1 % (11.5-14.5); Segmented Neutrophils % 73.7 %; White Blood Count 16.7 K/mcL (4.3-11.1)
[2021-04-15 05:58] LABS: BUN/Creatinine Ratio 38 (6-26); Blood Urea Nitrogen 18 mg/dL (6-20); C-Reactive Protein 91 mg/L (Less than 10); Calcium 8.9 mg/dL (8.6-10.3); Carbon Dioxide 37 mEq/L (23-29); Chloride 97 mEq/L (98-107); Glucose 139 mg/dL (70-105); Osmolality,Calculated 292 (280-300); Potassium 4.4 mEq/L (3.5-5.1); Sodium 139 mEq/L (136-145); eGFR For African Americans > 60 (> 60); eGFR For Non-African Americans > 60 (> 60)
[2021-04-15 06:28] LABS: Heparin anti-factor XA UFH 0.36 IU/mL (0.30-0.70)
[2021-04-15] MEDS: Cyanocobalamin (B-12) 1,000 MCG TABLET PO SCH (08:10)
[2021-04-15] MEDS: Loratadine 10 MG TABLET PO SCH (08:10)
[2021-04-15] MEDS: Cholecalciferol (D-3) 1,000 UNIT (25MCG) TABLET PO SCH (08:10)
[2021-04-15] MEDS: NIFEdipine XL (24 HR) 60 MG TAB.ER.24 PO SCH (08:10)
[2021-04-15] MEDS: Multivit/Ca/Min/Fe/FA 1 TAB TABLET PO SCH (08:10)
[2021-04-15] MEDS: Benzonatate 100 MG CAPSULE PO SCH ×3 (08:10→19:59)
[2021-04-15] MEDS: Metoprolol XL (24 HR) Succ 25 MG TAB.ER.24H PO SCH (08:10)
[2021-04-15] MEDS: Lactobacillus 1 EACH CAP.SPRINK PO SCH ×2 (08:10→19:59)
[2021-04-15] MEDS: Furosemide 20 MG/2 ML VIAL IVP SCH (08:11)
[2021-04-15] MEDS: hydrOXYzine pamoate 25 MG CAPSULE PO PRN ×2 (08:11→22:59)
[2021-04-15] MEDS: Insulin LISPRO 300 UNITS/3 ML VIAL SUBQ SCH ×4 (08:24→20:01)
[2021-04-15] MEDS: Budesonide/Formoterol 160/4.5 1 PUFF INH IH SCH ×2 (10:25→22:01)
[2021-04-15] MEDS: Insulin DETEMIR 100 UNIT/ML X5UNITS SUBQ SCH ×2 (12:01→20:05)
[2021-04-15] MEDS: Heparin 25,000UNIT/250ML 1/2NS 25,000 UNIT/250 ML IV.SOLN IVC SCH (12:02)
[2021-04-15] MEDS ORDERED: Ipratropium/Albuterol Neb 3 ML IH PRN (13:32)
[2021-04-15] MEDS: Acetylcysteine 10% 2 ML INHSOL IH SCH ×2 (16:18→22:01)
[2021-04-15] MEDS: Melatonin 3 MG TABLET PO SCH (20:00)
[2021-04-15] MEDS: Ipratropium/Albuterol Neb 3 ML IH SCH (22:01)
[2021-04-16] MEDS: Ipratropium/Albuterol Neb 3 ML IH SCH ×4 (03:30→20:23)
[2021-04-16] MEDS: Acetylcysteine 10% 2 ML INHSOL IH SCH ×4 (03:30→20:23)
[2021-04-16] MEDS: Heparin 25,000UNIT/250ML 1/2NS 25,000 UNIT/250 ML IV.SOLN IVC SCH ×2 (04:48→20:15)
[2021-04-16 05:01] LABS: Basophils # 0.1 K/mcL (0.0-0.2); Basophils % 0.3 %; Eosinophils # 1.2 K/mcL (0.0-0.6); Eosinophils % 6.7 %; Hematocrit 27.4 % (35.3-44.9); Hemoglobin 8.7 g/dL (11.5-15.4); Immature Granulocytes % 2.6 % (0-4); Lymphocytes # 2.9 K/mcL (0.6-4.6); Lymphocytes % 16.8 %; Mean Corpuscular HGB Conc 31.8 g/dL (31.6-35.5); Mean Corpuscular Volume 97.5 fL (83.0-100.0); Mean Platelet Volume 10.7 fL (9.4-12.4); Monocytes # 0.8 K/mcL (0.0-1.3); Monocytes % 4.6 %; Neutrophils # 11.9 K/mcL (1.6-8.9); Nucleated Red Blood Cells 0.1 /100 WBC (0); Platelet Count 169 K/mcL (140-400); Red Blood Count 2.81 M/mcL (3.82-4.97); Red Cell Distribution Width 14.4 % (11.5-14.5); White Blood Count 17.2 K/mcL (4.3-11.1)
[2021-04-16] MEDS: Acetaminophen 325 MG TABLET PO PRN (05:16)
[2021-04-16 05:25] LABS: BUN/Creatinine Ratio 31 (6-26); Blood Urea Nitrogen 12 mg/dL (6-20); Calcium 8.9 mg/dL (8.6-10.3); Carbon Dioxide 40 mEq/L (23-29); Chloride 95 mEq/L (98-107); Glucose 131 mg/dL (70-105); Osmolality,Calculated 290 (280-300); Potassium 4.1 mEq/L (3.5-5.1); Sodium 139 mEq/L (136-145); eGFR For African Americans > 60 (> 60); eGFR For Non-African Americans > 60 (> 60)
[2021-04-16] MEDS: Cyanocobalamin (B-12) 1,000 MCG TABLET PO SCH (09:02)
[2021-04-16] MEDS: Loratadine 10 MG TABLET PO SCH (09:02)
[2021-04-16] MEDS: Metoprolol XL (24 HR) Succ 25 MG TAB.ER.24H PO SCH (09:02)
[2021-04-16] MEDS: Lactobacillus 1 EACH CAP.SPRINK PO SCH ×2 (09:02→20:16)
[2021-04-16] MEDS: levoFLOXacin 750 MG TABLET PO SCH (09:02)
[2021-04-16] MEDS: Benzonatate 100 MG CAPSULE PO SCH ×3 (09:02→20:16)
[2021-04-16] MEDS: NIFEdipine XL (24 HR) 60 MG TAB.ER.24 PO SCH (09:02)
[2021-04-16] MEDS: Multivit/Ca/Min/Fe/FA 1 TAB TABLET PO SCH (09:03)
[2021-04-16] MEDS: Cholecalciferol (D-3) 1,000 UNIT (25MCG) TABLET PO SCH (09:03)
[2021-04-16] MEDS: Furosemide 20 MG/2 ML VIAL IVP SCH (09:03)
[2021-04-16] MEDS: Insulin LISPRO 300 UNITS/3 ML VIAL SUBQ SCH ×4 (09:04→21:43)
[2021-04-16] MEDS: Budesonide/Formoterol 160/4.5 1 PUFF INH IH SCH ×2 (09:19→20:23)
[2021-04-16] MEDS: Insulin DETEMIR 100 UNIT/ML X5UNITS SUBQ SCH ×2 (09:22→21:42)
[2021-04-16] MEDS: Melatonin 3 MG TABLET PO SCH (20:16)
[2021-04-17] MEDS: Ipratropium/Albuterol Neb 3 ML IH SCH ×4 (03:57→21:47)
[2021-04-17] MEDS: Acetylcysteine 10% 2 ML INHSOL IH SCH ×4 (03:57→21:47)
[2021-04-17 05:24] LABS: Basophils # 0.1 K/mcL (0.0-0.2); Basophils % 0.5 %; Eosinophils % 6.7 %; Hematocrit 28.5 % (35.3-44.9); Hemoglobin 8.9 g/dL (11.5-15.4); Immature Granulocytes % 2.7 % (0-4); Lymphocytes # 2.4 K/mcL (0.6-4.6); Lymphocytes % 15.4 %; Mean Corpuscular HGB Conc 31.2 g/dL (31.6-35.5); Mean Corpuscular Volume 99.3 fL (83.0-100.0); Mean Platelet Volume 10.5 fL (9.4-12.4); Monocytes # 0.8 K/mcL (0.0-1.3); Monocytes % 4.9 %; Neutrophils # 10.8 K/mcL (1.6-8.9); Nucleated Red Blood Cells 0.1 /100 WBC (0); Platelet Count 191 K/mcL (140-400); Red Blood Count 2.87 M/mcL (3.82-4.97); Red Cell Distribution Width 14.6 % (11.5-14.5); Segmented Neutrophils % 69.8 %; White Blood Count 15.4 K/mcL (4.3-11.1)
[2021-04-17 05:29] LABS: BUN/Creatinine Ratio 35 (6-26); Blood Urea Nitrogen 15 mg/dL (6-20); Carbon Dioxide 40 mEq/L (23-29); Chloride 95 mEq/L (98-107); Glucose 175 mg/dL (70-105); Osmolality,Calculated 293 (280-300); Sodium 139 mEq/L (136-145); eGFR For African Americans > 60 (> 60); eGFR For Non-African Americans > 60 (> 60)
[2021-04-17] MEDS: *HR* Heparin 5,000 UNIT/ML VIAL IVP PRN (06:03)
[2021-04-17] MEDS: Lactobacillus 1 EACH CAP.SPRINK PO SCH ×2 (08:34→23:30)
[2021-04-17] MEDS: levoFLOXacin 750 MG TABLET PO SCH (08:34)
[2021-04-17] MEDS: Loratadine 10 MG TABLET PO SCH (08:34)
[2021-04-17] MEDS: Benzonatate 100 MG CAPSULE PO SCH ×3 (08:34→20:30)
[2021-04-17] MEDS: Cyanocobalamin (B-12) 1,000 MCG TABLET PO SCH (08:34)
[2021-04-17] MEDS: Metoprolol XL (24 HR) Succ 25 MG TAB.ER.24H PO SCH (08:34)
[2021-04-17] MEDS: Multivit/Ca/Min/Fe/FA 1 TAB TABLET PO SCH (08:34)
[2021-04-17] MEDS: Cholecalciferol (D-3) 1,000 UNIT (25MCG) TABLET PO SCH (08:34)
[2021-04-17] MEDS: Insulin DETEMIR 100 UNIT/ML X5UNITS SUBQ SCH ×2 (08:35→20:30)
[2021-04-17] MEDS: Furosemide 20 MG/2 ML VIAL IVP SCH (08:35)
[2021-04-17] MEDS: Insulin LISPRO 300 UNITS/3 ML VIAL SUBQ SCH ×4 (08:36→20:30)
[2021-04-17] MEDS: Budesonide/Formoterol 160/4.5 1 PUFF INH IH SCH ×2 (10:25→21:47)
[2021-04-17] MEDS: Heparin 25,000UNIT/250ML 1/2NS 25,000 UNIT/250 ML IV.SOLN IVC SCH ×2 (11:14→23:28)
[2021-04-17] MEDS: *HR* HYDROcodone/Acet 5/325 mg TABLET PO PRN (16:46)
[2021-04-17] MEDS: *HR* OxyCODONE Immed Rel 5 MG TABLET PO PRN (20:30)
[2021-04-17] MEDS: Melatonin 3 MG TABLET PO SCH (20:30)
[2021-04-18] MEDS: *HR* Heparin 5,000 UNIT/ML VIAL IVP PRN ×2 (03:23→17:34)
[2021-04-18] MEDS: Acetylcysteine 10% 2 ML INHSOL IH SCH ×4 (03:35→20:09)
[2021-04-18] MEDS: Ipratropium/Albuterol Neb 3 ML IH SCH ×4 (03:35→20:09)
[2021-04-18 04:10] LABS: Basophils # 0.1 K/mcL (0.0-0.2); Basophils % 0.6 %; Eosinophils # 1.6 K/mcL (0.0-0.6); Eosinophils % 9.6 %; Hematocrit 27.8 % (35.3-44.9); Hemoglobin 8.2 g/dL (11.5-15.4); Immature Granulocytes % 2.8 % (0-4); Lymphocytes # 2.4 K/mcL (0.6-4.6); Lymphocytes % 14.1 %; Mean Corpuscular HGB Conc 29.5 g/dL (31.6-35.5); Mean Corpuscular Hemoglobin 29.6 pg (28.0-33.3); Mean Corpuscular Volume 100.4 fL (83.0-100.0); Mean Platelet Volume 10.9 fL (9.4-12.4); Monocytes % 6.1 %; Neutrophils # 11.4 K/mcL (1.6-8.9); Nucleated Red Blood Cells 0.1 /100 WBC (0); Platelet Count 217 K/mcL (140-400); Red Blood Count 2.77 M/mcL (3.82-4.97); Red Cell Distribution Width 15.3 % (11.5-14.5); Segmented Neutrophils % 66.8 %; White Blood Count 17.1 K/mcL (4.3-11.1)
[2021-04-18 05:24] LABS: BUN/Creatinine Ratio 33 (6-26); Blood Urea Nitrogen 16 mg/dL (6-20); Calcium 8.8 mg/dL (8.6-10.3); Carbon Dioxide 39 mEq/L (23-29); Chloride 94 mEq/L (98-107); Glucose 145 mg/dL (70-105); Osmolality,Calculated 290 (280-300); Potassium 4.1 mEq/L (3.5-5.1); Sodium 138 mEq/L (136-145); eGFR For African Americans > 60 (> 60); eGFR For Non-African Americans > 60 (> 60)
[2021-04-18] MEDS: Benzonatate 100 MG CAPSULE PO SCH ×2 (08:41→16:28)
[2021-04-18] MEDS: Metoprolol XL (24 HR) Succ 25 MG TAB.ER.24H PO SCH (08:41)
[2021-04-18] MEDS: Multivit/Ca/Min/Fe/FA 1 TAB TABLET PO SCH (08:41)
[2021-04-18] MEDS: Cholecalciferol (D-3) 1,000 UNIT (25MCG) TABLET PO SCH (08:41)
[2021-04-18] MEDS: Loratadine 10 MG TABLET PO SCH (08:41)
[2021-04-18] MEDS: Cyanocobalamin (B-12) 1,000 MCG TABLET PO SCH (08:41)
[2021-04-18] MEDS: Lactobacillus 1 EACH CAP.SPRINK PO SCH ×2 (08:41→22:01)
[2021-04-18] MEDS: levoFLOXacin 750 MG TABLET PO SCH (08:42)
[2021-04-18] MEDS: Insulin DETEMIR 100 UNIT/ML X5UNITS SUBQ SCH ×2 (08:42→22:04)
[2021-04-18] MEDS: Insulin LISPRO 300 UNITS/3 ML VIAL SUBQ SCH ×4 (08:42→22:05)
[2021-04-18] MEDS: Furosemide 20 MG/2 ML VIAL IVP SCH (08:42)
[2021-04-18] MEDS: Budesonide/Formoterol 160/4.5 1 PUFF INH IH SCH ×2 (10:47→20:09)
[2021-04-18] MEDS: *HR* HYDROcodone/Acet 5/325 mg TABLET PO PRN (16:27)
[2021-04-18] MEDS: Heparin 25,000UNIT/250ML 1/2NS 25,000 UNIT/250 ML IV.SOLN IVC SCH (17:27)
[2021-04-18] MEDS: Melatonin 3 MG TABLET PO SCH (22:00)
[2021-04-19] MEDS: Acetylcysteine 10% 2 ML INHSOL IH SCH ×4 (04:01→20:21)
[2021-04-19] MEDS: Ipratropium/Albuterol Neb 3 ML IH SCH ×4 (04:01→20:21)
[2021-04-19] MEDS: Heparin 25,000UNIT/250ML 1/2NS 25,000 UNIT/250 ML IV.SOLN IVC SCH ×2 (06:35→21:28)
[2021-04-19] MEDS: *HR* HYDROcodone/Acet 5/325 mg TABLET PO PRN ×2 (06:44→20:39)
[2021-04-19] MEDS: Furosemide 20 MG/2 ML VIAL IVP SCH (09:14)
[2021-04-19] MEDS: Metoprolol XL (24 HR) Succ 25 MG TAB.ER.24H PO SCH (09:14)
[2021-04-19] MEDS: Loratadine 10 MG TABLET PO SCH (09:15)
[2021-04-19] MEDS: Benzonatate 100 MG CAPSULE PO SCH ×4 (09:15→20:39)
[2021-04-19] MEDS: Lactobacillus 1 EACH CAP.SPRINK PO SCH ×2 (09:15→20:40)
[2021-04-19] MEDS: Cyanocobalamin (B-12) 1,000 MCG TABLET PO SCH (09:15)
[2021-04-19] MEDS: Multivit/Ca/Min/Fe/FA 1 TAB TABLET PO SCH (09:15)
[2021-04-19] MEDS: Cholecalciferol (D-3) 1,000 UNIT (25MCG) TABLET PO SCH (09:16)
[2021-04-19] MEDS: Insulin LISPRO 300 UNITS/3 ML VIAL SUBQ SCH ×4 (09:16→20:40)
[2021-04-19] MEDS: levoFLOXacin 750 MG TABLET PO SCH (09:16)
[2021-04-19] MEDS: Budesonide/Formoterol 160/4.5 1 PUFF INH IH SCH ×2 (10:17→20:21)
[2021-04-19] MEDS: Insulin DETEMIR 100 UNIT/ML X5UNITS SUBQ SCH ×2 (12:19→20:40)
[2021-04-19] MEDS: *HR* OxyCODONE Immed Rel 5 MG TABLET PO PRN (12:37)
[2021-04-19] MEDS: Melatonin 3 MG TABLET PO SCH (20:39)
[2021-04-19] MEDS: *HR* Heparin 5,000 UNIT/ML VIAL IVP PRN (21:25)
[2021-04-20] MEDS: Ipratropium/Albuterol Neb 3 ML IH SCH ×4 (03:38→22:21)
[2021-04-20] MEDS: Acetylcysteine 10% 2 ML INHSOL IH SCH ×4 (03:38→22:21)
[2021-04-20] MEDS: Heparin 25,000UNIT/250ML 1/2NS 25,000 UNIT/250 ML IV.SOLN IVC SCH ×3 (07:36→23:37)
[2021-04-20] MEDS: Insulin LISPRO 300 UNITS/3 ML VIAL SUBQ SCH ×4 (07:36→21:19)
[2021-04-20] MEDS: Lactobacillus 1 EACH CAP.SPRINK PO SCH ×2 (08:08→21:21)
[2021-04-20] MEDS: Benzonatate 100 MG CAPSULE PO SCH ×3 (08:08→21:17)
[2021-04-20] MEDS: levoFLOXacin 750 MG TABLET PO SCH (08:08)
[2021-04-20] MEDS: Acetaminophen 325 MG TABLET PO PRN (08:08)
[2021-04-20] MEDS: Insulin DETEMIR 100 UNIT/ML X5UNITS SUBQ SCH ×2 (08:09→21:17)
[2021-04-20] MEDS: Furosemide 20 MG/2 ML VIAL IVP SCH (08:09)
[2021-04-20] MEDS: Multivit/Ca/Min/Fe/FA 1 TAB TABLET PO SCH (08:09)
[2021-04-20] MEDS: Loratadine 10 MG TABLET PO SCH (08:09)
[2021-04-20] MEDS: Cyanocobalamin (B-12) 1,000 MCG TABLET PO SCH (08:09)
[2021-04-20] MEDS: Metoprolol XL (24 HR) Succ 25 MG TAB.ER.24H PO SCH (08:09)
[2021-04-20] MEDS: Cholecalciferol (D-3) 1,000 UNIT (25MCG) TABLET PO SCH (08:09)
[2021-04-20] MEDS: Budesonide/Formoterol 160/4.5 1 PUFF INH IH SCH ×2 (09:51→22:21)
[2021-04-20] MEDS: *HR* HYDROcodone/Acet 5/325 mg TABLET PO PRN ×2 (12:26→21:34)
[2021-04-20] MEDS: *HR* Heparin 5,000 UNIT/ML VIAL IVP PRN (14:19)
[2021-04-20] MEDS: Melatonin 3 MG TABLET PO SCH (21:18)
[2021-04-21] MEDS: *HR* OxyCODONE Immed Rel 5 MG TABLET PO PRN ×4 (01:40→21:07)
[2021-04-21] MEDS: Ipratropium/Albuterol Neb 3 ML IH SCH ×4 (03:32→20:07)
[2021-04-21] MEDS: Acetylcysteine 10% 2 ML INHSOL IH SCH ×4 (03:32→20:07)
[2021-04-21] MEDS: Acetaminophen 325 MG TABLET PO PRN (05:23)
[2021-04-21 06:01] LABS: Basophils # 0.1 K/mcL (0.0-0.2); Basophils % 0.7 %; Eosinophils # 1.8 K/mcL (0.0-0.6); Eosinophils % 10.9 %; Hematocrit 27.9 % (35.3-44.9); Hemoglobin 8.7 g/dL (11.5-15.4); Immature Granulocytes % 2.4 % (0-4); Lymphocytes # 2.2 K/mcL (0.6-4.6); Lymphocytes % 13.3 %; Mean Corpuscular HGB Conc 31.2 g/dL (31.6-35.5); Mean Corpuscular Hemoglobin 31.3 pg (28.0-33.3); Mean Corpuscular Volume 100.4 fL (83.0-100.0); Mean Platelet Volume 10.3 fL (9.4-12.4); Monocytes # 1.2 K/mcL (0.0-1.3); Monocytes % 7.5 %; Neutrophils # 10.8 K/mcL (1.6-8.9); Nucleated Red Blood Cells 0.2 /100 WBC (0); Platelet Count 268 K/mcL (140-400); Red Blood Count 2.78 M/mcL (3.82-4.97); Red Cell Distribution Width 16.2 % (11.5-14.5); Segmented Neutrophils % 65.2 %; White Blood Count 16.5 K/mcL (4.3-11.1)
[2021-04-21 06:22] LABS: BUN/Creatinine Ratio 30 (6-26); Blood Urea Nitrogen 15 mg/dL (6-20); Calcium 9.3 mg/dL (8.6-10.3); Carbon Dioxide 40 mEq/L (23-29); Chloride 92 mEq/L (98-107); Glucose 191 mg/dL (70-105); Osmolality,Calculated 292 (280-300); Potassium 4.6 mEq/L (3.5-5.1); Sodium 138 mEq/L (136-145); eGFR For African Americans > 60 (> 60); eGFR For Non-African Americans > 60 (> 60)
[2021-04-21] MEDS: Budesonide/Formoterol 160/4.5 1 PUFF INH IH SCH ×2 (10:03→20:07)
[2021-04-21] MEDS: Insulin LISPRO 300 UNITS/3 ML VIAL SUBQ SCH ×3 (12:14→21:08)
[2021-04-21] MEDS: Heparin 25,000UNIT/250ML 1/2NS 25,000 UNIT/250 ML IV.SOLN IVC SCH ×2 (13:12→22:30)
[2021-04-21] MEDS: *HR* HYDROcodone/Acet 5/325 mg TABLET PO PRN (13:18)
[2021-04-21] MEDS: *HR* Heparin 5,000 UNIT/ML VIAL IVP PRN (14:34)
[2021-04-21] MEDS: Benzonatate 100 MG CAPSULE PO SCH ×2 (14:35→21:07)
[2021-04-21] MEDS: Melatonin 3 MG TABLET PO SCH (21:07)
[2021-04-21] MEDS: Insulin DETEMIR 100 UNIT/ML X5UNITS SUBQ SCH (21:08)
[2021-04-21] MEDS: Lactobacillus 1 EACH CAP.SPRINK PO SCH (21:08)
[2021-04-22] MEDS: *HR* OxyCODONE Immed Rel 5 MG TABLET PO PRN ×4 (01:46→20:34)
[2021-04-22] MEDS: Acetylcysteine 10% 2 ML INHSOL IH SCH ×4 (04:02→20:56)
[2021-04-22] MEDS: Ipratropium/Albuterol Neb 3 ML IH SCH ×4 (04:02→20:56)
[2021-04-22 05:33] LABS: Basophils # 0.1 K/mcL (0.0-0.2); Basophils % 0.8 %; Eosinophils # 1.3 K/mcL (0.0-0.6); Eosinophils % 10.3 %; Hemoglobin 7.8 g/dL (11.5-15.4); Immature Granulocytes % 2.6 % (0-4); Lymphocytes # 2.6 K/mcL (0.6-4.6); Lymphocytes % 20.4 %; Mean Corpuscular Hemoglobin 30.2 pg (28.0-33.3); Mean Corpuscular Volume 100.8 fL (83.0-100.0); Mean Platelet Volume 9.9 fL (9.4-12.4); Monocytes # 0.9 K/mcL (0.0-1.3); Monocytes % 6.6 %; Neutrophils # 7.6 K/mcL (1.6-8.9); Nucleated Red Blood Cells 0.3 /100 WBC (0); Platelet Count 214 K/mcL (140-400); Red Blood Count 2.58 M/mcL (3.82-4.97); Red Cell Distribution Width 16.6 % (11.5-14.5); Segmented Neutrophils % 59.3 %; White Blood Count 12.8 K/mcL (4.3-11.1)
[2021-04-22 05:56] LABS: BUN/Creatinine Ratio 36 (6-26); Blood Urea Nitrogen 16 mg/dL (6-20); Calcium 9.2 mg/dL (8.6-10.3); Carbon Dioxide 41 mEq/L (23-29); Chloride 92 mEq/L (98-107); Glucose 170 mg/dL (70-105); Osmolality,Calculated 289 (280-300); Potassium 4.1 mEq/L (3.5-5.1); Sodium 137 mEq/L (136-145); eGFR For African Americans > 60 (> 60); eGFR For Non-African Americans > 60 (> 60)
[2021-04-22] MEDS: Cholecalciferol (D-3) 1,000 UNIT (25MCG) TABLET PO SCH (07:58)
[2021-04-22] MEDS: levoFLOXacin 750 MG TABLET PO SCH (07:59)
[2021-04-22] MEDS: Loratadine 10 MG TABLET PO SCH (07:59)
[2021-04-22] MEDS: Multivit/Ca/Min/Fe/FA 1 TAB TABLET PO SCH (07:59)
[2021-04-22] MEDS: Cyanocobalamin (B-12) 1,000 MCG TABLET PO SCH (07:59)
[2021-04-22] MEDS: Lactobacillus 1 EACH CAP.SPRINK PO SCH ×2 (07:59→20:31)
[2021-04-22] MEDS: Furosemide 20 MG/2 ML VIAL IVP SCH (08:00)
[2021-04-22] MEDS: Benzonatate 100 MG CAPSULE PO SCH ×2 (08:00→15:11)
[2021-04-22] MEDS: Metoprolol XL (24 HR) Succ 25 MG TAB.ER.24H PO SCH (08:00)
[2021-04-22] MEDS: Insulin DETEMIR 100 UNIT/ML X5UNITS SUBQ SCH ×2 (08:01→20:35)
[2021-04-22] MEDS: Insulin LISPRO 300 UNITS/3 ML VIAL SUBQ SCH ×4 (08:07→20:35)
[2021-04-22] MEDS: Budesonide/Formoterol 160/4.5 1 PUFF INH IH SCH ×2 (10:41→20:56)
[2021-04-22] MEDS: *HR* HYDROcodone/Acet 5/325 mg TABLET PO PRN (15:13)
[2021-04-22] MEDS: *HR* Enoxaparin 150 MG/ML SYRINGE SQ SCH (16:53)
[2021-04-22] MEDS: Melatonin 3 MG TABLET PO SCH (20:31)
[2021-04-22] MEDS: hydrOXYzine pamoate 25 MG CAPSULE PO PRN (22:06)
[2021-04-23] MEDS: *HR* HYDROcodone/Acet 5/325 mg TABLET PO PRN (00:04)
[2021-04-23 03:31] LABS: Basophils # 0.1 K/mcL (0.0-0.2); Basophils % 0.6 %; Eosinophils # 1.1 K/mcL (0.0-0.6); Eosinophils % 8.5 %; Hematocrit 25.5 % (35.3-44.9); Hemoglobin 7.7 g/dL (11.5-15.4); Immature Granulocytes % 2.7 % (0-4); Lymphocytes # 2.1 K/mcL (0.6-4.6); Lymphocytes % 15.8 %; Mean Corpuscular HGB Conc 30.2 g/dL (31.6-35.5); Mean Corpuscular Hemoglobin 30.2 pg (28.0-33.3); Mean Platelet Volume 10.1 fL (9.4-12.4); Monocytes # 0.9 K/mcL (0.0-1.3); Neutrophils # 8.7 K/mcL (1.6-8.9); Nucleated Red Blood Cells 0.4 /100 WBC (0); Platelet Count 212 K/mcL (140-400); Red Blood Count 2.55 M/mcL (3.82-4.97); Red Cell Distribution Width 16.8 % (11.5-14.5); Segmented Neutrophils % 65.4 %; White Blood Count 13.2 K/mcL (4.3-11.1)
[2021-04-23 03:47] LABS: BUN/Creatinine Ratio 35 (6-26); Blood Urea Nitrogen 17 mg/dL (6-20); Calcium 9.2 mg/dL (8.6-10.3); Carbon Dioxide 40 mEq/L (23-29); Chloride 92 mEq/L (98-107); Glucose 177 mg/dL (70-105); Osmolality,Calculated 288 (280-300); Sodium 136 mEq/L (136-145); eGFR For African Americans > 60 (> 60); eGFR For Non-African Americans > 60 (> 60)
[2021-04-23] MEDS: Ipratropium/Albuterol Neb 3 ML IH SCH ×4 (04:11→22:40)
[2021-04-23] MEDS: Acetylcysteine 10% 2 ML INHSOL IH SCH ×4 (04:11→22:41)
[2021-04-23] MEDS ORDERED: GI Cocktail 40 ML EACH PO ONE (04:23)
[2021-04-23] MEDS: *HR* Enoxaparin 150 MG/ML SYRINGE SQ SCH ×2 (06:05→17:51)
[2021-04-23] MEDS: Budesonide/Formoterol 160/4.5 1 PUFF INH IH SCH ×2 (07:23→22:41)
[2021-04-23] MEDS: Insulin LISPRO 300 UNITS/3 ML VIAL SUBQ SCH ×4 (08:04→19:57)
[2021-04-23] MEDS: Lactobacillus 1 EACH CAP.SPRINK PO SCH ×2 (08:05→19:53)
[2021-04-23] MEDS: Cyanocobalamin (B-12) 1,000 MCG TABLET PO SCH (08:05)
[2021-04-23] MEDS: Furosemide 20 MG/2 ML VIAL IVP SCH (08:05)
[2021-04-23] MEDS: Loratadine 10 MG TABLET PO SCH (08:05)
[2021-04-23] MEDS: Metoprolol XL (24 HR) Succ 25 MG TAB.ER.24H PO SCH (08:05)
[2021-04-23] MEDS: Multivit/Ca/Min/Fe/FA 1 TAB TABLET PO SCH (08:06)
[2021-04-23] MEDS: Cholecalciferol (D-3) 1,000 UNIT (25MCG) TABLET PO SCH (08:06)
[2021-04-23] MEDS: Insulin DETEMIR 100 UNIT/ML X5UNITS SUBQ SCH ×2 (08:07→19:57)
[2021-04-23] MEDS: hydrOXYzine pamoate 25 MG CAPSULE PO PRN ×2 (08:27→19:53)
[2021-04-23] MEDS: *HR* OxyCODONE Immed Rel 5 MG TABLET PO PRN (10:37)
[2021-04-23] MEDS: Heparin 25,000UNIT/250ML 1/2NS 25,000 UNIT/250 ML IV.SOLN IVC SCH (18:55)
[2021-04-23] MEDS: Benzonatate 100 MG CAPSULE PO PRN (19:53)
[2021-04-23] MEDS: Melatonin 3 MG TABLET PO SCH (19:53)
[2021-04-23] MEDS: Acetaminophen 325 MG TABLET PO PRN (22:12)
[2021-04-24] MEDS: Acetylcysteine 10% 2 ML INHSOL IH SCH ×4 (03:33→21:35)
[2021-04-24] MEDS: Ipratropium/Albuterol Neb 3 ML IH SCH ×4 (03:33→21:35)
[2021-04-24] MEDS: Acetaminophen 325 MG TABLET PO PRN ×2 (04:41→16:10)
[2021-04-24] MEDS: *HR* Enoxaparin 150 MG/ML SYRINGE SQ SCH (05:16)
[2021-04-24] MEDS: Budesonide/Formoterol 160/4.5 1 PUFF INH IH SCH ×2 (07:15→21:35)
[2021-04-24] MEDS: Insulin LISPRO 300 UNITS/3 ML VIAL SUBQ SCH ×4 (07:41→20:01)
[2021-04-24] MEDS: Lactobacillus 1 EACH CAP.SPRINK PO SCH ×2 (07:42→19:57)
[2021-04-24] MEDS: Cyanocobalamin (B-12) 1,000 MCG TABLET PO SCH (07:42)
[2021-04-24] MEDS: Cholecalciferol (D-3) 1,000 UNIT (25MCG) TABLET PO SCH (07:42)
[2021-04-24] MEDS: Metoprolol XL (24 HR) Succ 25 MG TAB.ER.24H PO SCH (07:42)
[2021-04-24] MEDS: Furosemide 20 MG/2 ML VIAL IVP SCH (07:43)
[2021-04-24] MEDS: Multivit/Ca/Min/Fe/FA 1 TAB TABLET PO SCH (07:43)
[2021-04-24] MEDS: Loratadine 10 MG TABLET PO SCH (07:43)
[2021-04-24] MEDS: Insulin DETEMIR 100 UNIT/ML X5UNITS SUBQ SCH ×2 (07:45→20:00)
[2021-04-24 08:39] LABS: Basophils # 0.1 K/mcL (0.0-0.2); Basophils % 0.6 %; Eosinophils % 9.2 %; Hematocrit 27.7 % (35.3-44.9); Hemoglobin 8.4 g/dL (11.5-15.4); Immature Granulocytes % 2.5 % (0-4); Lymphocytes # 2.4 K/mcL (0.6-4.6); Lymphocytes % 21.3 %; Mean Corpuscular HGB Conc 30.3 g/dL (31.6-35.5); Mean Corpuscular Hemoglobin 30.3 pg (28.0-33.3); Mean Platelet Volume 9.8 fL (9.4-12.4); Monocytes # 0.8 K/mcL (0.0-1.3); Monocytes % 6.8 %; Neutrophils # 6.6 K/mcL (1.6-8.9); Nucleated Red Blood Cells 0.5 /100 WBC (0); Platelet Count 234 K/mcL (140-400); Red Blood Count 2.77 M/mcL (3.82-4.97); Red Cell Distribution Width 16.9 % (11.5-14.5); Segmented Neutrophils % 59.6 %
[2021-04-24] MEDS: *HR* HYDROcodone/Acet 10/325 mg TABLET PO PRN (18:21)
[2021-04-24] MEDS: Apixaban 5 MG TABLET PO SCH (19:57)
[2021-04-24] MEDS: Melatonin 3 MG TABLET PO SCH (19:58)
[2021-04-25] MEDS: *HR* HYDROcodone/Acet 10/325 mg TABLET PO PRN ×4 (01:30→23:26)
[2021-04-25 01:39] LABS: Basophils # 0.1 K/mcL (0.0-0.2); Basophils % 0.8 %; Eosinophils # 0.9 K/mcL (0.0-0.6); Eosinophils % 9.3 %; Hematocrit 25.8 % (35.3-44.9); Hemoglobin 7.7 g/dL (11.5-15.4); Immature Granulocytes % 2.3 % (0-4); Lymphocytes # 2.2 K/mcL (0.6-4.6); Mean Corpuscular HGB Conc 29.8 g/dL (31.6-35.5); Mean Corpuscular Hemoglobin 30.2 pg (28.0-33.3); Mean Corpuscular Volume 101.2 fL (83.0-100.0); Mean Platelet Volume 9.7 fL (9.4-12.4); Monocytes # 0.7 K/mcL (0.0-1.3); Monocytes % 7.4 %; Neutrophils # 5.7 K/mcL (1.6-8.9); Nucleated Red Blood Cells 0.5 /100 WBC (0); Platelet Count 210 K/mcL (140-400); Red Blood Count 2.55 M/mcL (3.82-4.97); Segmented Neutrophils % 58.2 %; White Blood Count 9.8 K/mcL (4.3-11.1)
[2021-04-25 02:07] LABS: BUN/Creatinine Ratio 30 (6-26); Blood Urea Nitrogen 14 mg/dL (6-20); Calcium 9.1 mg/dL (8.6-10.3); Carbon Dioxide 40 mEq/L (23-29); Chloride 95 mEq/L (98-107); Glucose 124 mg/dL (70-105); Osmolality,Calculated 294 (280-300); Potassium 3.8 mEq/L (3.5-5.1); Sodium 141 mEq/L (136-145); eGFR For African Americans > 60 (> 60); eGFR For Non-African Americans > 60 (> 60)
[2021-04-25] MEDS: Acetylcysteine 10% 2 ML INHSOL IH SCH ×3 (03:46→15:19)
[2021-04-25] MEDS: Ipratropium/Albuterol Neb 3 ML IH SCH ×3 (03:46→15:19)
[2021-04-25] MEDS: Budesonide/Formoterol 160/4.5 1 PUFF INH IH SCH ×2 (07:13→19:45)
[2021-04-25] MEDS: Insulin LISPRO 300 UNITS/3 ML VIAL SUBQ SCH ×4 (08:26→20:20)
[2021-04-25] MEDS: Furosemide 20 MG/2 ML VIAL IVP SCH (08:27)
[2021-04-25] MEDS: Insulin DETEMIR 100 UNIT/ML X5UNITS SUBQ SCH ×2 (08:29→20:25)
[2021-04-25] MEDS: Loratadine 10 MG TABLET PO SCH (08:34)
[2021-04-25] MEDS: Multivit/Ca/Min/Fe/FA 1 TAB TABLET PO SCH (08:35)
[2021-04-25] MEDS: Lactobacillus 1 EACH CAP.SPRINK PO SCH ×2 (08:35→20:19)
[2021-04-25] MEDS: Apixaban 5 MG TABLET PO SCH ×2 (08:35→20:19)
[2021-04-25] MEDS: Metoprolol XL (24 HR) Succ 25 MG TAB.ER.24H PO SCH (08:35)
[2021-04-25] MEDS: Cyanocobalamin (B-12) 1,000 MCG TABLET PO SCH (08:35)
[2021-04-25] MEDS: Cholecalciferol (D-3) 1,000 UNIT (25MCG) TABLET PO SCH (08:35)
[2021-04-25] MEDS: Melatonin 3 MG TABLET PO SCH (20:18)
[2021-04-26] MEDS: *HR* HYDROcodone/Acet 10/325 mg TABLET PO PRN ×3 (06:40→23:44)
[2021-04-26] MEDS: Budesonide/Formoterol 160/4.5 1 PUFF INH IH SCH ×2 (07:21→20:56)
[2021-04-26] MEDS: Insulin LISPRO 300 UNITS/3 ML VIAL SUBQ SCH ×4 (07:41→20:57)
[2021-04-26] MEDS: Cholecalciferol (D-3) 1,000 UNIT (25MCG) TABLET PO SCH (09:19)
[2021-04-26] MEDS: Loratadine 10 MG TABLET PO SCH (09:19)
[2021-04-26] MEDS: Lactobacillus 1 EACH CAP.SPRINK PO SCH ×2 (09:20→20:56)
[2021-04-26] MEDS: Apixaban 5 MG TABLET PO SCH ×2 (09:20→20:56)
[2021-04-26] MEDS: Cyanocobalamin (B-12) 1,000 MCG TABLET PO SCH (09:20)
[2021-04-26] MEDS: Multivit/Ca/Min/Fe/FA 1 TAB TABLET PO SCH (09:20)
[2021-04-26] MEDS: Metoprolol XL (24 HR) Succ 25 MG TAB.ER.24H PO SCH (09:20)
[2021-04-26] MEDS: Furosemide 20 MG/2 ML VIAL IVP SCH (09:22)
[2021-04-26] MEDS: Insulin DETEMIR 100 UNIT/ML X5UNITS SUBQ SCH ×2 (09:23→20:56)
[2021-04-26] MEDS: Melatonin 3 MG TABLET PO SCH (20:56)
[2021-04-26] MEDS: Acyclovir 200 MG CAPSULE PO SCH (20:56)
[2021-04-27] MEDS: Insulin LISPRO 300 UNITS/3 ML VIAL SUBQ SCH ×4 (08:33→21:41)
[2021-04-27] MEDS: Multivit/Ca/Min/Fe/FA 1 TAB TABLET PO SCH (09:08)
[2021-04-27] MEDS: Apixaban 5 MG TABLET PO SCH ×2 (09:08→21:47)
[2021-04-27] MEDS: Cholecalciferol (D-3) 1,000 UNIT (25MCG) TABLET PO SCH (09:08)
[2021-04-27] MEDS: Furosemide 40 MG TABLET PO SCH (09:08)
[2021-04-27] MEDS: Acyclovir 200 MG CAPSULE PO SCH ×3 (09:08→21:46)
[2021-04-27] MEDS: Metoprolol XL (24 HR) Succ 25 MG TAB.ER.24H PO SCH (09:09)
[2021-04-27] MEDS: Cyanocobalamin (B-12) 1,000 MCG TABLET PO SCH (09:09)
[2021-04-27] MEDS: Lactobacillus 1 EACH CAP.SPRINK PO SCH ×2 (09:09→21:46)
[2021-04-27] MEDS: Loratadine 10 MG TABLET PO SCH (09:09)
[2021-04-27] MEDS: Insulin DETEMIR 100 UNIT/ML X5UNITS SUBQ SCH ×2 (09:12→21:47)
[2021-04-27] MEDS: Budesonide/Formoterol 160/4.5 1 PUFF INH IH SCH ×2 (10:43→19:59)
[2021-04-27] MEDS: *HR* HYDROcodone/Acet 10/325 mg TABLET PO PRN ×2 (12:32→21:53)
[2021-04-27] MEDS: Melatonin 3 MG TABLET PO SCH (21:46)
[2021-04-28] MEDS: Insulin LISPRO 300 UNITS/3 ML VIAL SUBQ SCH ×4 (07:15→20:34)
[2021-04-28] MEDS: Budesonide/Formoterol 160/4.5 1 PUFF INH IH SCH ×2 (07:38→20:28)
[2021-04-28] MEDS: Metoprolol XL (24 HR) Succ 25 MG TAB.ER.24H PO SCH (08:58)
[2021-04-28] MEDS: Furosemide 40 MG TABLET PO SCH (08:58)
[2021-04-28] MEDS: Lactobacillus 1 EACH CAP.SPRINK PO SCH ×2 (08:58→20:44)
[2021-04-28] MEDS: Loratadine 10 MG TABLET PO SCH (08:58)
[2021-04-28] MEDS: Cyanocobalamin (B-12) 1,000 MCG TABLET PO SCH (08:58)
[2021-04-28] MEDS: Cholecalciferol (D-3) 1,000 UNIT (25MCG) TABLET PO SCH (08:59)
[2021-04-28] MEDS: Acyclovir 200 MG CAPSULE PO SCH ×3 (08:59→20:44)
[2021-04-28] MEDS: Multivit/Ca/Min/Fe/FA 1 TAB TABLET PO SCH (08:59)
[2021-04-28] MEDS: Insulin DETEMIR 100 UNIT/ML X5UNITS SUBQ SCH ×2 (08:59→20:44)
[2021-04-28] MEDS: Apixaban 5 MG TABLET PO SCH ×2 (09:01→20:44)
[2021-04-28 11:10] LABS: Basophils # 0.1 K/mcL (0.0-0.2); Basophils % 0.7 %; Eosinophils # 0.8 K/mcL (0.0-0.6); Eosinophils % 9.7 %; Hematocrit 27.2 % (35.3-44.9); Hemoglobin 8.2 g/dL (11.5-15.4); Immature Granulocytes % 1.6 % (0-4); Lymphocytes # 1.5 K/mcL (0.6-4.6); Lymphocytes % 18.5 %; Mean Corpuscular HGB Conc 30.1 g/dL (31.6-35.5); Mean Corpuscular Hemoglobin 30.6 pg (28.0-33.3); Mean Corpuscular Volume 101.5 fL (83.0-100.0); Monocytes # 0.6 K/mcL (0.0-1.3); Monocytes % 6.9 %; Neutrophils # 5.1 K/mcL (1.6-8.9); Nucleated Red Blood Cells 0.4 /100 WBC (0); Platelet Count 240 K/mcL (140-400); Red Blood Count 2.68 M/mcL (3.82-4.97); Red Cell Distribution Width 16.9 % (11.5-14.5); Segmented Neutrophils % 62.6 %; White Blood Count 8.2 K/mcL (4.3-11.1)
[2021-04-28] MEDS: *HR* HYDROcodone/Acet 10/325 mg TABLET PO PRN ×2 (15:49→22:00)
[2021-04-28] MEDS: Melatonin 3 MG TABLET PO SCH (20:44)
[2021-04-28] MEDS: Benzonatate 100 MG CAPSULE PO PRN (20:58)
[2021-04-29] MEDS: Budesonide/Formoterol 160/4.5 1 PUFF INH IH SCH ×2 (07:27→19:52)
[2021-04-29] MEDS: Apixaban 5 MG TABLET PO SCH ×2 (07:47→22:09)
[2021-04-29] MEDS: Cyanocobalamin (B-12) 1,000 MCG TABLET PO SCH (07:47)
[2021-04-29] MEDS: Lactobacillus 1 EACH CAP.SPRINK PO SCH ×2 (07:47→22:08)
[2021-04-29] MEDS: Metoprolol XL (24 HR) Succ 25 MG TAB.ER.24H PO SCH (07:48)
[2021-04-29] MEDS: *HR* HYDROcodone/Acet 10/325 mg TABLET PO PRN ×3 (07:48→22:08)
[2021-04-29] MEDS: Furosemide 40 MG TABLET PO SCH (07:48)
[2021-04-29] MEDS: Loratadine 10 MG TABLET PO SCH (07:48)
[2021-04-29] MEDS: Cholecalciferol (D-3) 1,000 UNIT (25MCG) TABLET PO SCH (07:48)
[2021-04-29] MEDS: Multivit/Ca/Min/Fe/FA 1 TAB TABLET PO SCH (07:48)
[2021-04-29] MEDS: Insulin LISPRO 300 UNITS/3 ML VIAL SUBQ SCH ×4 (07:52→21:11)
[2021-04-29] MEDS: Acyclovir 200 MG CAPSULE PO SCH ×3 (07:55→22:09)
[2021-04-29] MEDS: Insulin DETEMIR 100 UNIT/ML X5UNITS SUBQ SCH ×2 (07:56→22:08)
[2021-04-29] MEDS: Benzonatate 100 MG CAPSULE PO PRN ×2 (15:05→23:54)
[2021-04-29] MEDS: Melatonin 3 MG TABLET PO SCH (22:09)
[2021-04-30] MEDS: Budesonide/Formoterol 160/4.5 1 PUFF INH IH SCH ×2 (07:36→19:17)
[2021-04-30] MEDS: Insulin LISPRO 300 UNITS/3 ML VIAL SUBQ SCH ×4 (08:18→21:26)
[2021-04-30] MEDS: Lactobacillus 1 EACH CAP.SPRINK PO SCH ×2 (08:24→21:26)
[2021-04-30] MEDS: Loratadine 10 MG TABLET PO SCH (08:24)
[2021-04-30] MEDS: Metoprolol XL (24 HR) Succ 25 MG TAB.ER.24H PO SCH (08:24)
[2021-04-30] MEDS: Apixaban 5 MG TABLET PO SCH ×2 (08:24→21:25)
[2021-04-30] MEDS: Acyclovir 200 MG CAPSULE PO SCH ×3 (08:24→21:24)
[2021-04-30] MEDS: Furosemide 40 MG TABLET PO SCH (08:24)
[2021-04-30] MEDS: Cyanocobalamin (B-12) 1,000 MCG TABLET PO SCH (08:24)
[2021-04-30] MEDS: Cholecalciferol (D-3) 1,000 UNIT (25MCG) TABLET PO SCH (08:25)
[2021-04-30] MEDS: Multivit/Ca/Min/Fe/FA 1 TAB TABLET PO SCH (08:25)
[2021-04-30] MEDS: Insulin DETEMIR 100 UNIT/ML X5UNITS SUBQ SCH ×2 (08:30→22:05)
[2021-04-30] MEDS: Benzonatate 100 MG CAPSULE PO PRN ×2 (08:30→16:54)
[2021-04-30] MEDS: *HR* HYDROcodone/Acet 10/325 mg TABLET PO PRN (16:54)
[2021-04-30] MEDS: Melatonin 3 MG TABLET PO SCH (21:25)
[2021-05-01] MEDS: *HR* HYDROcodone/Acet 10/325 mg TABLET PO PRN ×3 (03:56→22:32)
[2021-05-01 04:43] LABS: Basophils # 0.1 K/mcL (0.0-0.2); Eosinophils # 0.7 K/mcL (0.0-0.6); Eosinophils % 8.4 %; Hematocrit 25.8 % (35.3-44.9); Hemoglobin 7.7 g/dL (11.5-15.4); Immature Granulocytes % 1.6 % (0-4); Lymphocytes # 1.9 K/mcL (0.6-4.6); Mean Corpuscular HGB Conc 29.8 g/dL (31.6-35.5); Mean Corpuscular Hemoglobin 30.7 pg (28.0-33.3); Mean Corpuscular Volume 102.8 fL (83.0-100.0); Mean Platelet Volume 9.7 fL (9.4-12.4); Monocytes # 0.6 K/mcL (0.0-1.3); Monocytes % 7.8 %; Neutrophils # 4.5 K/mcL (1.6-8.9); Nucleated Red Blood Cells 0.4 /100 WBC (0); Platelet Count 246 K/mcL (140-400); Red Blood Count 2.51 M/mcL (3.82-4.97); Red Cell Distribution Width 17.1 % (11.5-14.5); Segmented Neutrophils % 57.2 %; White Blood Count 7.9 K/mcL (4.3-11.1)
[2021-05-01 05:03] LABS: BUN/Creatinine Ratio 24 (6-26); Blood Urea Nitrogen 9 mg/dL (6-20); Calcium 8.9 mg/dL (8.6-10.3); Carbon Dioxide 40 mEq/L (23-29); Chloride 96 mEq/L (98-107); Glucose 133 mg/dL (70-105); Magnesium 1.9 mg/dL (1.6-2.6); Osmolality,Calculated 291 (280-300); Phosphorous 5.1 mg/dL (2.7-4.5); Potassium 3.8 mEq/L (3.5-5.1); Sodium 140 mEq/L (136-145); eGFR For African Americans > 60 (> 60); eGFR For Non-African Americans > 60 (> 60)
[2021-05-01] MEDS: Insulin LISPRO 300 UNITS/3 ML VIAL SUBQ SCH ×4 (07:27→21:49)
[2021-05-01] MEDS: Lactobacillus 1 EACH CAP.SPRINK PO SCH ×2 (09:34→21:48)
[2021-05-01] MEDS: Furosemide 40 MG TABLET PO SCH (09:34)
[2021-05-01] MEDS: Apixaban 5 MG TABLET PO SCH ×2 (09:34→21:49)
[2021-05-01] MEDS: Loratadine 10 MG TABLET PO SCH (09:34)
[2021-05-01] MEDS: Cyanocobalamin (B-12) 1,000 MCG TABLET PO SCH (09:35)
[2021-05-01] MEDS: Multivit/Ca/Min/Fe/FA 1 TAB TABLET PO SCH (09:35)
[2021-05-01] MEDS: Cholecalciferol (D-3) 1,000 UNIT (25MCG) TABLET PO SCH (09:35)
[2021-05-01] MEDS: Metoprolol XL (24 HR) Succ 25 MG TAB.ER.24H PO SCH (09:35)
[2021-05-01] MEDS: Benzonatate 100 MG CAPSULE PO PRN ×2 (09:38→22:33)
[2021-05-01] MEDS: Insulin DETEMIR 100 UNIT/ML X5UNITS SUBQ SCH ×2 (09:39→21:51)
[2021-05-01] MEDS: Budesonide/Formoterol 160/4.5 1 PUFF INH IH SCH ×2 (11:05→20:00)
[2021-05-01] MEDS: Melatonin 3 MG TABLET PO SCH (21:48)
[2021-05-01] MEDS: Furosemide 20 MG/2 ML VIAL IVP SCH (21:49)
[2021-05-02] MEDS: Insulin LISPRO 300 UNITS/3 ML VIAL SUBQ SCH ×4 (08:00→22:31)
[2021-05-02] MEDS: Cyanocobalamin (B-12) 1,000 MCG TABLET PO SCH (08:30)
[2021-05-02] MEDS: Furosemide 20 MG/2 ML VIAL IVP SCH ×2 (08:30→22:29)
[2021-05-02] MEDS: Apixaban 5 MG TABLET PO SCH ×2 (08:30→22:30)
[2021-05-02] MEDS: Lactobacillus 1 EACH CAP.SPRINK PO SCH ×2 (08:31→22:30)
[2021-05-02] MEDS: Loratadine 10 MG TABLET PO SCH (08:31)
[2021-05-02] MEDS: Multivit/Ca/Min/Fe/FA 1 TAB TABLET PO SCH (08:31)
[2021-05-02] MEDS: Metoprolol XL (24 HR) Succ 25 MG TAB.ER.24H PO SCH (08:31)
[2021-05-02] MEDS: Cholecalciferol (D-3) 1,000 UNIT (25MCG) TABLET PO SCH (08:31)
[2021-05-02] MEDS: Benzonatate 100 MG CAPSULE PO PRN ×2 (08:31→22:50)
[2021-05-02] MEDS: Insulin DETEMIR 100 UNIT/ML X5UNITS SUBQ SCH ×3 (08:35→22:31)
[2021-05-02] MEDS: Budesonide/Formoterol 160/4.5 1 PUFF INH IH SCH ×2 (11:21→20:21)
[2021-05-02] MEDS: *HR* HYDROcodone/Acet 10/325 mg TABLET PO PRN ×2 (15:57→22:47)
[2021-05-02] MEDS: Melatonin 3 MG TABLET PO SCH (22:30)
[2021-05-03] MEDS: *HR* HYDROcodone/Acet 10/325 mg TABLET PO PRN ×3 (05:15→22:10)
[2021-05-03] MEDS: Benzonatate 100 MG CAPSULE PO PRN ×2 (05:15→22:10)
[2021-05-03 05:19] LABS: Hematocrit 25.2 % (35.3-44.9); Hemoglobin 7.8 g/dL (11.5-15.4)
[2021-05-03] MEDS: Insulin LISPRO 300 UNITS/3 ML VIAL SUBQ SCH ×4 (07:48→22:12)
[2021-05-03] MEDS: Metoprolol XL (24 HR) Succ 25 MG TAB.ER.24H PO SCH (07:49)
[2021-05-03] MEDS: Cholecalciferol (D-3) 1,000 UNIT (25MCG) TABLET PO SCH (07:49)
[2021-05-03] MEDS: Lactobacillus 1 EACH CAP.SPRINK PO SCH ×2 (07:49→22:10)
[2021-05-03] MEDS: Cyanocobalamin (B-12) 1,000 MCG TABLET PO SCH (07:49)
[2021-05-03] MEDS: Multivit/Ca/Min/Fe/FA 1 TAB TABLET PO SCH (07:49)
[2021-05-03] MEDS: Furosemide 20 MG/2 ML VIAL IVP SCH ×2 (07:49→22:11)
[2021-05-03] MEDS: Apixaban 5 MG TABLET PO SCH ×2 (07:49→22:10)
[2021-05-03] MEDS: Insulin DETEMIR 100 UNIT/ML X5UNITS SUBQ SCH ×2 (07:50→22:09)
[2021-05-03] MEDS: Loratadine 10 MG TABLET PO SCH (07:50)
[2021-05-03] MEDS: Budesonide/Formoterol 160/4.5 1 PUFF INH IH SCH ×2 (08:51→20:22)
[2021-05-03] MEDS: Melatonin 3 MG TABLET PO SCH (22:10)
[2021-05-04] MEDS: *HR* HYDROcodone/Acet 10/325 mg TABLET PO PRN (04:45)
[2021-05-04 05:46] LABS: BUN/Creatinine Ratio 24 (6-26); Blood Urea Nitrogen 10 mg/dL (6-20); Calcium 8.9 mg/dL (8.6-10.3); Carbon Dioxide 40 mEq/L (23-29); Chloride 95 mEq/L (98-107); Glucose 145 mg/dL (70-105); Magnesium 1.8 mg/dL (1.6-2.6); Osmolality,Calculated 290 (280-300); Phosphorous 5.1 mg/dL (2.7-4.5); Potassium 3.6 mEq/L (3.5-5.1); Sodium 139 mEq/L (136-145); eGFR For African Americans > 60 (> 60); eGFR For Non-African Americans > 60 (> 60)
[2021-05-04 06:56] VITALS: TEMP 98.3; O2SAT 98
[2021-05-04] MEDS: Budesonide/Formoterol 160/4.5 1 PUFF INH IH SCH (07:58)
[2021-05-04] MEDS: Insulin LISPRO 300 UNITS/3 ML VIAL SUBQ SCH ×2 (08:20→12:05)
[2021-05-04] MEDS: Insulin DETEMIR 100 UNIT/ML X5UNITS SUBQ SCH (08:21)
[2021-05-04] MEDS: Loratadine 10 MG TABLET PO SCH (08:22)
[2021-05-04] MEDS: Lactobacillus 1 EACH CAP.SPRINK PO SCH (08:23)
[2021-05-04] MEDS: Cyanocobalamin (B-12) 1,000 MCG TABLET PO SCH (08:23)
[2021-05-04] MEDS: Metoprolol XL (24 HR) Succ 25 MG TAB.ER.24H PO SCH (08:23)
[2021-05-04] MEDS: Multivit/Ca/Min/Fe/FA 1 TAB TABLET PO SCH (08:23)
[2021-05-04] MEDS: Cholecalciferol (D-3) 1,000 UNIT (25MCG) TABLET PO SCH (08:23)
[2021-05-04] MEDS: Apixaban 5 MG TABLET PO SCH (08:23)
[2021-05-04] MEDS: Furosemide 20 MG/2 ML VIAL IVP SCH (08:26)
[2021-05-04] MEDS: Benzonatate 100 MG CAPSULE PO PRN (09:51)
[2021-05-04 15:44] VITALS: BP 113/49; PULSE 62
== END 2021-05-04 17:55 | disposition critical access hospital (66) | DRG 871 ==
LOC: EMEROOARM 09:06 → 3ANU 09:06 → SUATTDRO 13:43 → 3ANU 14:13 → 2NENU 03-28 09:50
PROVIDERS: ADMIT Family Medicine; ATTEND Internal Medicine